=== PATIENT | male | born 1970 | race Caucasian/White ===

== ENCOUNTER 2016-11-09 07:58 | Emergency (ER) | payer BC ==
--- NOTE | 2016-11-09 09:26 | ER Document Report ---
ED General - General Chief Complaint: Back Pain Stated Complaint: ABDOMINAL PAIN TRAVEL OUTSIDE OF THE [place] IN LAST 30 DAYS: No - Related Data Allergies/Adverse Reactions: No Known Allergies Allergy (Verified 11/09/16 08:00) Past Medical History - Social History Smoking Status: Current Every Day Smoker Chew tobacco use (# tins/day): No Frequency of alcohol use: Occasional Drug Abuse: None Family History: Reviewed & Not Pertinent Patient has suicidal ideation: No Patient has homicidal ideation: No - Past Medical History Cardiac Medical History: Reports: Hx Hypertension Endocrine Medical History: Reports: Hx Diabetes Mellitus Type 2 Renal/ Medical History: Denies: Hx Peritoneal Dialysis - Immunizations Immunizations up to date: Yes Hx Diphtheria, Pertussis, Tetanus Vaccination: Yes Physical Exam - Vital signs Vitals: Temp Pulse Resp BP Pulse Ox 98.1 F 93 14 140/93 H 99 11/09/16 08:01 11/09/16 08:01 11/09/16 08:01 11/09/16 08:01 11/09/16 08:01 Course - Re-evaluation Re-evalutation: 11/09/16 09:25 presents emergency Department chief complaint low back pain following lifting a television. He describes it as paralumbar and into the abdominal region when he moves a certain direction. It's reproducible with movement touch lifting his legs forward or backwards and walking. He denies any midline tenderness numbness things weakness loss of bowel or bladder function is pulled muscles in his back in the past no bladder or urinary or fecal incontinence. Abdomen soft with tenderness guarding rebound rigidity or concerns for hernia when he lifts his leg forward he gets pain in the muscle over the anterior abdominal wall muscle. I discharged him to home on Robaxin for primary care physician in 3-4 days and discussed reasons for ED return sooner - Vital Signs Vital signs: Temp Pulse Resp BP Pulse Ox 98.1 F 93 14 140/93 H 99 11/09/16 08:01 11/09/16 08:01 11/09/16 08:01 11/09/16 08:01 11/09/16 08:01 Discharge - Discharge Clinical Impression: Low back strain Qualifiers: Encounter type: initial encounter Qualified Code(s): S39.012A - Strain of muscle, fascia and tendon of lower back, initial encounter Condition: Stable Disposition: HOME, SELF-CARE Additional Instructions: Low Back Pain Three out of every four people will have an episode of disabling back pain during their lifetime. Most commonly the pain is due to straining of the muscles and ligaments in the low back. Usual treatment includes: (1) Rest on a firm surface. Avoid lying on your stomach. (2) Ice pack the painful area. After a few days, gentle heat may be used intermittently to relax the area, or ice packs can be continued. (3) Medication may be needed -- muscle relaxers and antiinflammatory medicines are commonly used. (4) As the back improves, exercises are prescribed to strengthen the back and abdominal muscles. Your doctor will advise you on the proper care for your back at each stage in your recovery. You may be better in a few days -- or healing may take several weeks. If new symptoms of a "herniated disc" (radiation of pain, numbness, or tingling down the back of the leg or weakness in the leg) occur, you should be re-examined. Further testing may be necessary. Prescriptions: Methocarbamol [Robaxin 500 mg Tablet] 500 mg PO BID #15 tablet Referrals: YULISA WILKINS MD [Primary Care Provider] - Follow up in 3-5 days (Return to the emergency prone sooner for increasing worsening or new symptoms)
[2016-11-09 09:40] VITALS: BP 139/89
== END 2016-11-09 09:38 | disposition home or self-care (01) ==
LOC: ER 07:58
DX: S39.012A Strain of muscle, fascia and tendon of lower back, initial encounter (principal); X50.0XXA Overexertion from strenuous movement or load, initial encounter; R10.9 Unspecified abdominal pain; F17.200 Nicotine dependence, unspecified, uncomplicated; I10 Essential (primary) hypertension; E11.9 Type 2 diabetes mellitus without complications
CPT/HCPCS: 99283

== ENCOUNTER 2016-12-19 12:38 | Emergency (ER) | payer BC ==
[2016-12-19] MEDS ORDERED: LIDOCAINE 5% (700 MG) TRANSDERMAL ADH..PATCH TP ONE (14:15)
--- NOTE | 2016-12-19 14:20 | ER Document Report ---
ED General - General Chief Complaint: Back Pain Stated Complaint: BACK PAIN,LEFT FOOT NUMBNESS TRAVEL OUTSIDE OF THE [place] IN LAST 30 DAYS: No - HPI Patient complains to provider of: low back pain Notes: Patient coming in for evaluation of low back pain similar to presentation approximately 5 weeks ago. 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 Patient states he has numbness and pain in the back of his leg right foot went numb. Patient states now sensation is returned to his right foot. Patient denies any trauma. Patient denies fever chills nausea vomiting IV drug use. Patient denies any saddle anesthesias urinary incontinence bowel incontinence - Related Data Allergies/Adverse Reactions: No Known Allergies Allergy (Verified 12/19/16 12:48) Past Medical History - Social History Smoking Status: Unknown if Ever Smoked Family History: Reviewed & Not Pertinent Patient has suicidal ideation: No Patient has homicidal ideation: No - Past Medical History Cardiac Medical History: Reports: Hx Hypertension Endocrine Medical History: Reports: Hx Diabetes Mellitus Type 2 Renal/ Medical History: Denies: Hx Peritoneal Dialysis - Immunizations Immunizations up to date: Yes Hx Diphtheria, Pertussis, Tetanus Vaccination: Yes Review of Systems - Review of Systems Constitutional: No symptoms reported EENT: No symptoms reported Cardiovascular: No symptoms reported Respiratory: No symptoms reported Gastrointestinal: No symptoms reported Genitourinary: No symptoms reported Male Genitourinary: No symptoms reported Musculoskeletal: Back pain Skin: No symptoms reported Hematologic/Lymphatic: No symptoms reported Neurological/Psychological: No symptoms reported -: Yes All other systems reviewed and negative Physical Exam - Vital signs Vitals: Temp Pulse Resp BP Pulse Ox 98.9 F 114 H 18 132/90 H 99 12/19/16 12:49 12/19/16 12:49 12/19/16 12:49 12/19/16 12:49 12/19/16 12:49 Interpretation: Normal - General General appearance: Appears well, Alert - HEENT Head: Normocephalic, Atraumatic Eyes: Normal Pupils: PERRL - Respiratory Respiratory status: No respiratory distress Chest status: Nontender Breath sounds: Normal Chest palpation: Normal - Cardiovascular Rhythm: Regular Heart sounds: Normal auscultation Murmur: No - Abdominal Inspection: Normal Distension: No distension Bowel sounds: Normal Tenderness: Nontender Organomegaly: No organomegaly - Back Back: Normal, Tender - Tenderness to palpation of the right paraspinal lower L4- L5 muscles. Patient also has reproducible tenderness upon palpation of the piriformis with some reproduction of symptoms. - Extremities General upper extremity: Normal inspection, Nontender, Normal color, Normal ROM , Normal temperature General lower extremity: Normal inspection, Nontender, Normal color, Normal ROM , Normal temperature, Normal weight bearing. No: Andrade's sign - Neurological Neuro grossly intact: Yes Cognition: Normal Orientation: AAOx4 [place] Coma Scale Eye Opening: Spontaneous [place] Coma Scale Verbal: Oriented [place] Coma Scale Motor: Obeys Commands [place] Coma Scale Total: 15 Speech: Normal Motor strength normal: LUE, RUE, LLE, RLE Sensory: Normal - Psychological Associated symptoms: Normal affect, Normal mood - Skin Skin Temperature: Warm Skin Moisture: Dry Skin Color: Normal Course - Re-evaluation Re-evalutation: 12/19/16 14:20 The patient presents with low back pain without signs of spinal cord compression , cauda equina syndrome, infection, aneurysm, or other serious etiology. The patient is neurologically intact. Given the extremely low risk of these diagnoses further testing and evaluation for these possibilities does not appear to be indicated at this time. The patient has been instructed to return if the symptoms worsen or change in any way. .. - Vital Signs Vital signs: Temp Pulse Resp BP Pulse Ox 98.9 F 114 H 18 132/90 H 99 12/19/16 12:49 12/19/16 12:49 12/19/16 12:49 12/19/16 12:49 12/19/16 12:49 Discharge - Discharge Clinical Impression: Back pain Qualifiers: Back pain location: low back pain Chronicity: acute Back pain laterality: right Sciatica presence: with sciatica Sciatica laterality: sciatica of right side Qualified Code(s): M54.41 - Lumbago with sciatica, right side Condition: Good Disposition: HOME, SELF-CARE Instructions: Ice Packs ([facility]), Low Back Pain ([facility]), Oral Narcotic Medication ( [facility]), Warm Packs ([facility]), Sciatica ([facility]) Additional Instructions: Continue to take Tylenol and Motrin for your pain. These take steroids as prescribed. Return to the ER if symptoms worsen. Please follow-up with your primary care physician. We will give you a Lidoderm patch here today. There is a [id number] option please discuss this with your pharmacist. Please continue to alternate between ice packs warm packs. Please rest Prescriptions: Ibuprofen [Motrin 600 mg Tablet] 600 mg PO Q8HP PRN #90 tablet PRN Reason: Prednisone [Deltasone 20 mg Tablet] 3 tab PO DAILY 5 Days Tramadol HCl [Ultram 50 mg Tablet] 50 mg PO ASDIR PRN #30 tablet PRN Reason: Forms: Return to Work
[2016-12-19 14:34] VITALS: BP 116/96
== END 2016-12-19 14:30 | disposition home or self-care (01) ==
LOC: ER 12:38
DX: M54.41 Lumbago with sciatica, right side (principal); R20.0 Anesthesia of skin; E11.9 Type 2 diabetes mellitus without complications; I10 Essential (primary) hypertension
CPT/HCPCS: 99283

== ENCOUNTER 2017-04-21 12:23 | Emergency (ER) | payer BC ==
[2017-04-21] MEDS ORDERED: KETOROLAC TROMETHAMINE INJ/PF 30 MG/1 ML SDV IV ONE (12:48)
[2017-04-21] MEDS ORDERED: NORMAL SALINE 1000 ML 1,000 ML IV PRN (12:48)
--- NOTE | 2017-04-21 12:53 | ER Document Report ---
ED GI/ - General Chief Complaint: Abdominal Pain Stated Complaint: STOMACH/BACK PAIN Time Seen by Provider: 04/21/17 12:32 Mode of Arrival: Ambulatory Information source: Patient TRAVEL OUTSIDE OF THE [place] IN LAST 30 DAYS: No - HPI Patient complains to provider of: Abdominal pain, Diarrhea Onset: Other - November Timing/Duration: Persistent, Worse Quality of pain: Pressure, Sharp Severity at maximum: Moderate Severity in ED: Moderate Location: RUQ Associated symptoms: Diarrhea, Nausea Exacerbated by: Denies Relieved by: Denies Notes: 04/21/17 12:52 46-year-old male presents to the emergency room today complaining of right upper quadrant pain, he has been having some right-sided abdominal pain since November but over the last few days he now has pain radiating to his mid back between his shoulder blades, which worsens with deep breaths, and is associated with diarrhea, no nausea or vomiting, no fever, no dysuria or hematuria, denies any injury or trauma - Related Data Allergies/Adverse Reactions: No Known Allergies Allergy (Verified 04/21/17 12:28) Past Medical History - General Information source: Patient - Social History Smoking Status: Current Every Day Smoker Chew tobacco use (# tins/day): No Frequency of alcohol use: Occasional Drug Abuse: None Family History: Reviewed & Not Pertinent - Past Medical History Cardiac Medical History: Reports: Hx Heart Attack, Hx Hypercholesterolemia, Hx Hypertension Endocrine Medical History: Reports: Hx Diabetes Mellitus Type 2 Renal/ Medical History: Denies: Hx Peritoneal Dialysis Past Surgical History: Reports: Hx Cardiac Surgery - cardiac stent 04/29/2013 - Immunizations Immunizations up to date: Yes Hx Diphtheria, Pertussis, Tetanus Vaccination: Yes Review of Systems - Review of Systems Constitutional: No symptoms reported EENT: No symptoms reported Cardiovascular: No symptoms reported Respiratory: No symptoms reported Gastrointestinal: See HPI Genitourinary: No symptoms reported Male Genitourinary: No symptoms reported Musculoskeletal: No symptoms reported Skin: No symptoms reported Hematologic/Lymphatic: No symptoms reported Neurological/Psychological: No symptoms reported -: Yes All other systems reviewed and negative Physical Exam - Vital signs Vitals: Temp Pulse Resp BP Pulse Ox 98.7 F 90 20 165/98 H 98 04/21/17 12:28 04/21/17 12:28 04/21/17 12:28 04/21/17 12:28 04/21/17 12:28 Interpretation: Normal - General General appearance: Appears well, Alert - HEENT Head: Normocephalic, Atraumatic Eyes: Normal Pupils: PERRL - Respiratory Respiratory status: No respiratory distress Chest status: Nontender Breath sounds: Normal Chest palpation: Normal - Cardiovascular Rhythm: Regular Heart sounds: Normal auscultation Murmur: No - Abdominal Inspection: Normal Distension: No distension Bowel sounds: Normal Tenderness: Tender - right upper quadrant, epigastric Organomegaly: No organomegaly - Back Back: Normal, Nontender - Extremities General upper extremity: Normal inspection, Nontender, Normal color, Normal ROM , Normal temperature General lower extremity: Normal inspection, Nontender, Normal color, Normal ROM , Normal temperature, Normal weight bearing. No: Andrade's sign - Neurological Neuro grossly intact: Yes Cognition: Normal Orientation: AAOx4 [place] Coma Scale Eye Opening: Spontaneous [place] Coma Scale Verbal: Oriented [place] Coma Scale Motor: Obeys Commands [place] Coma Scale Total: 15 Speech: Normal Motor strength normal: LUE, RUE, LLE, RLE Sensory: Normal - Psychological Associated symptoms: Normal affect, Normal mood - Skin Skin Temperature: Warm Skin Moisture: Dry Skin Color: Normal Course - Re-evaluation Re-evalutation: 04/21/17 15:01 Patient resting comfortably on stretcher, lab and imaging findings were discussed with him at bedside which are fairly unremarkable, symptoms are consistent with musculoskeletal pain, he was also advised of his elevated blood sugar, he does have a history of diabetes but elected to stop taking his metformin on his own, has not followed up with a primary care provider for further evaluation and treatment since Dr. Nguyen and moved to [place] which was done 6 months ago, he reports that he has metformin at home and was advised to start taking this medication again, he will be prescribed a small amount of pain medication for his abdominal and back pain, and advised to follow-up accordingly, patient acknowledges understanding and agreement with this plan - Vital Signs Vital signs: Temp Pulse Resp BP Pulse Ox 98.7 F 90 20 165/98 H 98 04/21/17 12:28 04/21/17 12:28 04/21/17 12:28 04/21/17 12:28 04/21/17 12:28 - Laboratory Result Diagrams: 04/21/17 12:55 04/21/17 12:55 Laboratory results interpreted by me: 04/21/17 04/21/17 04/21/17 12:55 12:55 12:55 WBC 10.7 H Glucose 297 H Direct Bilirubin 0.5 H Alkaline Phosphatase 127 H Urine Protein 100 H Urine Glucose (UA) 150 H Urine Ascorbic Acid 40 H - Diagnostic Test Radiology reviewed: Image reviewed, Reports reviewed - EKG Interpretation by Me EKG shows normal: Sinus rhythm Rate: Normal Rhythm: NSR Discharge - Discharge Clinical Impression: Back pain Qualifiers: Back pain location: low back pain Chronicity: chronic Back pain laterality: right Sciatica presence: without sciatica Qualified Code(s): M54.5 - Low back pain; G89.29 - Other chronic pain Abdominal pain Qualifiers: Abdominal location: right upper quadrant Qualified Code(s): R10.11 - Right upper quadrant pain Hyperglycemia due to type 2 diabetes mellitus Qualifiers: Diabetes mellitus halfway insulin use: unspecified terminal manager insulin use status Qualified Code(s): E11.65 - Type 2 diabetes mellitus with hyperglycemia Condition: Stable Disposition: HOME, SELF-CARE Instructions: Abdominal Pain ([facility]), Oral Narcotic Medication ([facility]), Low Back Pain ([facility]), Chronic Back Pain ([facility]), Family Physicians / Practices Additional Instructions: Follow up with your primary care provider in one to 2 days. Return to the emergency room immediately if symptoms worsen or any additional concerns. Prescriptions: Hydrocodone/Acetaminophen [Hydrocodon-Acetaminophen 5-325] 1 each PO Q6 #14 tablet
--- NOTE | 2017-04-21 13:16 | EKG REPORT ---
SEVERITY:- BORDERLINE ECG - SINUS RHYTHM BORDERLINE PROLONGED QT INTERVAL : Confirmed by: Dann Law MD 21-Apr-2017 13:15:16
[2017-04-21 13:20] LABS: ABSOLUTE BASOPHILS # (AUTO) 0.1 10^3/uL (0.0-0.2); ABSOLUTE EOSINOPHILS # (AUTO) 0.4 10^3/uL (0.0-0.6); ABSOLUTE LYMPHOCYTES (AUTO) 3.7 10^3/uL (0.5-4.7); ABSOLUTE MONOCYTES (AUTO) 0.6 10^3/uL (0.1-1.4); ABSOLUTE NEUT (AUTO) 5.8 10^3/uL (1.7-8.2); BASOPHILS % (AUTO) 0.7 % (0-2); EOSINOPHILS % (AUTO) 3.8 % (0-6); HEMATOCRIT 46.5 % (37.9-51.0); HEMOGLOBIN 16.2 g/dL (13.5-17.0); HGB HCT DIFFERENCE 2.1; LYMPHOCYTES % (AUTO) 34.9 % (13-45); MEAN CORPUSCULAR HEMOGLOBIN 32.3 pg (27.0-33.4); MEAN CORPUSCULAR HGB CONC 34.9 g/dL (32.0-36.0); MEAN CORPUSCULAR VOLUME 93 fl (80-97); MONOCYTES % (AUTO) 5.9 % (3-13); RED BLOOD COUNT 5.02 10^6/uL (4.35-5.55); RED CELL DISTRIBUTION WIDTH 12.6 % (11.5-14.0); SEGMENTED NEUTROPHILS % (AUTO) 54.7 % (42-78); WHITE BLOOD COUNT 10.7 10^3/uL (4.0-10.5)
[2017-04-21 13:26] LABS: APPEARANCE,URINE CLEAR; BILIRUBIN,URINE NEGATIVE (NEGATIVE); GLUCOSE, URINE 150 mg/dL (NEGATIVE); KETONES,URINE NEGATIVE (NEGATIVE); LEUKOCYTE ESTERASE,URINE NEGATIVE (NEGATIVE); NITRITE,URINE NEGATIVE (NEGATIVE); PROTEIN,URINE 100 mg/dL (NEGATIVE); URINE SPECIFIC GRAVITY 1.036; UROBILINOGEN,URINE NEGATIVE mg/dL (<2.0)
[2017-04-21 13:37] LABS: ALANINE AMINOTRANSFERASE 39 U/L (21-72); ALBUMIN 4.7 g/dL (3.5-5.0); ALKALINE PHOSPHATASE 127 U/L (38-126); ANION GAP 14 (5-19); ASPARTATE AMINO TRANSFERASE 34 U/L (17-59); BILIRUBIN,DIRECT 0.5 mg/dL (0.0-0.4); BILIRUBIN,TOTAL 0.6 mg/dL (0.2-1.3); BLOOD UREA NITROGEN 9 mg/dL (7-20); CARBON DIOXIDE 26 mmol/L (22-30); CHLORIDE 102 mmol/L (98-107); CREATININE RESULT 0.61 mg/dL (0.52-1.25); GLUCOSE 297 mg/dL (75-110); LIPASE 86.7 U/L (23-300); POTASSIUM 4.2 mmol/L (3.6-5.0); SODIUM 142.2 mmol/L (137-145)
--- NOTE | 2017-04-21 14:47 | RADIOLOGY REPORT (SQ) ---
EXAM DESCRIPTION: U/S ABDOMEN LIMITED W/O DOP COMPLETED DATE/TIME: 04/21/2017 2:33 pm REASON FOR STUDY: pain COMPARISON: None. TECHNIQUE: Dynamic and static grayscale images acquired of the abdomen and recorded on PACS. Additio nal selected color Doppler and spectral images recorded. LIMITATIONS: None. FINDINGS: PANCREAS: No masses. No peripancreatic edema or fluid collections. LIVER: Echotexture is coarse with increased echogenicity consistent with fatty infiltration. Geograp hic area of focal fatty sparing in the right lobe. LIVER VASCULATURE: Normal directional flow of the main portal vein and hepatic veins. GALLBLADDER: No stones. Normal wall thickness. No pericholecystic fluid. ULTRASOUND-DETECTED KAPADIA'S SIGN: Negative. INTRAHEPATIC DUCTS AND COMMON DUCT: CBD and intrahepatic ducts normal caliber. No filling defects. INFERIOR VENA CAVA: Normal flow. AORTA: No aneurysm. RIGHT KIDNEY: Normal size. Normal echogenicity. No solid or suspicious masses. No hydronephrosis. No calcifications. PERITONEAL AND RIGHT PLEURAL SPACE: No ascites or effusions. OTHER: No other significant finding. IMPRESSION: FATTY INFILTRATION OF THE LIVER. OTHERWISE NORMAL RIGHT UPPER QUADRANT ULTRASOUND. TECHNICAL DOCUMENTATION: JOB ID: [id number] [employer]- All Rights Reserved
[2017-04-21 15:25] VITALS: BP 159/102
== END 2017-04-21 15:25 | disposition home or self-care (01) ==
LOC: ER 12:23
DX: R10.11 Right upper quadrant pain (principal); R19.7 Diarrhea, unspecified; E11.65 Type 2 diabetes mellitus with hyperglycemia; T38.3X6A Underdosing of insulin and oral hypoglycemic [antidiabetic] drugs, initial encounter; Z91.128 Patient's intentional underdosing of medication regimen for other reason; Z91.14 Patient's other noncompliance with medication regimen; G89.29 Other chronic pain; M54.5 Low back pain; M54.89 Other dorsalgia; I25.2 Old myocardial infarction; I10 Essential (primary) hypertension; F17.200 Nicotine dependence, unspecified, uncomplicated; Z95.5 Presence of coronary angioplasty implant and graft
CPT/HCPCS: 93005; 99284; 96361; 96374; 36415; 83690; 85025; 80053; 81001; 76705; 93010; J1885; J7030

== ENCOUNTER 2017-04-28 18:36 | Emergency (ER) | payer BC ==
--- NOTE | 2017-04-28 18:56 | ER Document Report ---
ED Medical Screen (RME) - General Chief Complaint: Pain All Over Stated Complaint: CHEST PAIN Time Seen by Provider: 04/28/17 18:54 Mode of Arrival: Ambulatory Information source: Patient TRAVEL OUTSIDE OF THE [place] IN LAST 30 DAYS: No - HPI Patient complains to provider of: Right upper quadrant pain, chest pain, shortness of breath Notes: 04/28/17 18:56 Patient is a 46-year-old male presenting to the emergency room today complaining of 1 week history of right upper quadrant abdominal pain that radiates into his back, today he is now having chest pain with shortness of breath as well - Related Data Allergies/Adverse Reactions: No Known Allergies Allergy (Verified 04/28/17 18:49) Past Medical History - Social History Chew tobacco use (# tins/day): No Frequency of alcohol use: Occasional Drug Abuse: Marijuana - Past Medical History Cardiac Medical History: Reports: Hx Heart Attack, Hx Hypercholesterolemia, Hx Hypertension Endocrine Medical History: Reports: Hx Diabetes Mellitus Type 2 Renal/ Medical History: Denies: Hx Peritoneal Dialysis Past Surgical History: Reports: Hx Cardiac Surgery - cardiac stent 04/29/2013 - Immunizations Immunizations up to date: Yes Hx Diphtheria, Pertussis, Tetanus Vaccination: Yes Physical Exam - Vital signs Vitals: Temp Pulse Resp BP Pulse Ox 99.2 F 95 18 174/90 H 98 04/28/17 18:47 04/28/17 18:47 04/28/17 18:47 04/28/17 18:47 04/28/17 18:47 Course - Vital Signs Vital signs: Temp Pulse Resp BP Pulse Ox 99.2 F 95 18 174/90 H 98 04/28/17 18:47 04/28/17 18:47 04/28/17 18:47 04/28/17 18:47 04/28/17 18:47
[2017-04-28 19:21] LABS: ABSOLUTE EOSINOPHILS # (AUTO) 0.5 10^3/uL (0.0-0.6); ABSOLUTE LYMPHOCYTES (AUTO) 4.7 10^3/uL (0.5-4.7); ABSOLUTE MONOCYTES (AUTO) 0.8 10^3/uL (0.1-1.4); ABSOLUTE NEUT (AUTO) 8.2 10^3/uL (1.7-8.2); BASOPHILS % (AUTO) 0.2 % (0-2); EOSINOPHILS % (AUTO) 3.5 % (0-6); HEMATOCRIT 48.5 % (37.9-51.0); HGB HCT DIFFERENCE 2.5; MEAN CORPUSCULAR HEMOGLOBIN 32.3 pg (27.0-33.4); MEAN CORPUSCULAR HGB CONC 35.1 g/dL (32.0-36.0); MEAN CORPUSCULAR VOLUME 92 fl (80-97); MONOCYTES % (AUTO) 5.6 % (3-13); RED BLOOD COUNT 5.28 10^6/uL (4.35-5.55); RED CELL DISTRIBUTION WIDTH 12.7 % (11.5-14.0); SEGMENTED NEUTROPHILS % (AUTO) 57.7 % (42-78); WHITE BLOOD COUNT 14.2 10^3/uL (4.0-10.5)
[2017-04-28 19:30] LABS: APPEARANCE,URINE SLIGHTLY-CLOUDY; BILIRUBIN,URINE NEGATIVE (NEGATIVE); GLUCOSE, URINE >=500 mg/dL (NEGATIVE); KETONES,URINE TRACE mg/dL (NEGATIVE); LEUKOCYTE ESTERASE,URINE LARGE (NEGATIVE); NITRITE,URINE NEGATIVE (NEGATIVE); PROTEIN,URINE 100 mg/dL (NEGATIVE); URINE SPECIFIC GRAVITY 1.033; UROBILINOGEN,URINE NEGATIVE mg/dL (<2.0)
[2017-04-28 19:37] LABS: ALANINE AMINOTRANSFERASE 30 U/L (21-72); ALBUMIN 4.5 g/dL (3.5-5.0); ALKALINE PHOSPHATASE 113 U/L (38-126); ANION GAP 15 (5-19); ASPARTATE AMINO TRANSFERASE 23 U/L (17-59); BILIRUBIN,DIRECT 0.4 mg/dL (0.0-0.4); BILIRUBIN,TOTAL 0.5 mg/dL (0.2-1.3); BLOOD UREA NITROGEN 11 mg/dL (7-20); CALCIUM 10.1 mg/dL (8.4-10.2); CARBON DIOXIDE 20 mmol/L (22-30); CHLORIDE 102 mmol/L (98-107); CREATINE KINASE 37 U/L (55-170); CREATININE RESULT 0.66 mg/dL (0.52-1.25); LIPASE 88.1 U/L (23-300); POTASSIUM 4.2 mmol/L (3.6-5.0); SODIUM 136.8 mmol/L (137-145); TOTAL PROTEIN 7.6 g/dL (6.3-8.2)
--- NOTE | 2017-04-28 19:38 | RADIOLOGY REPORT (SQ) ---
EXAM DESCRIPTION: CHEST PA/LAT COMPLETED DATE/TIME: 04/28/2017 7:29 pm REASON FOR STUDY: cp COMPARISON: 04/29/2013. EXAM PARAMETERS: NUMBER OF VIEWS: two views TECHNIQUE: Digital Frontal and Lateral radiographic views of the chest acquired. RADIATION DOSE: NA LIMITATIONS: none FINDINGS: LUNGS AND PLEURA: No opacities, masses or pneumothorax. No pleural effusion. MEDIASTINUM AND HILAR STRUCTURES: No masses or contour abnormalities. HEART AND VASCULAR STRUCTURES: Heart normal size. No evidence for failure. BONES: No acute findings. HARDWARE: None in the chest. OTHER: No other significant finding. IMPRESSION: NO SIGNIFICANT RADIOGRAPHIC FINDING IN THE CHEST. TECHNICAL DOCUMENTATION: JOB ID: [id number] [employer]- All Rights Reserved
[2017-04-28 19:44] LABS: GLUCOSE 429 mg/dL (75-110)
[2017-04-28 19:50] LABS: TROPONIN I < 0.012 ng/mL
[2017-04-28] MEDS ORDERED: NORMAL SALINE 1000 ML 1,000 ML IV ONE (20:01)
[2017-04-28] MEDS ORDERED: FENTANYL CITRATE INJ/PF 100 MCG/2 ML AMPUL IV ONE (20:02)
[2017-04-28] MEDS ORDERED: ONDANSETRON HCL INJ/PF 4 MG/2 ML SDV IV ONE (20:02)
--- NOTE | 2017-04-28 20:02 | ER Document Report ---
ED General - General Mode of Arrival: Ambulatory Information source: Patient TRAVEL OUTSIDE OF THE [place] IN LAST 30 DAYS: No - HPI Onset: Other - see narrative Associated symptoms: None Similar symptoms previously: Yes Recently seen / treated by doctor: Yes <ARTIS GRIGGS - Last Filed: 04/28/17 22:45> <JUAN JOSÉ MIKE - Last Filed: 04/28/17 23:28> - General Chief Complaint: Pain All Over Stated Complaint: CHEST PAIN Time Seen by Provider: 04/28/17 18:54 Notes: Patient is a 46-year-old male who presents to the emergency department today with complaints of musculoskeletal pain. Patient complains of right upper quadrant abdominal musculature pain and back pain. Patient was seen here 1 week ago and had a full workup including gallbladder ultrasound which were unremarkable. Patient states that his pain is exacerbated with movement, breathing, coughing, and sneezing. Patient states it feels like a "pulled muscle". Patient has no associated symptoms with this pain. (ARTIS GRIGGS) - Related Data Allergies/Adverse Reactions: No Known Allergies Allergy (Verified 04/28/17 18:49) Past Medical History - General Information source: Patient - Social History Smoking Status: Current Every Day Smoker Cigarette use (# per day): Yes Chew tobacco use (# tins/day): No Frequency of alcohol use: Occasional Drug Abuse: Marijuana Lives with: Family Family History: Reviewed & Not Pertinent - Past Medical History Cardiac Medical History: Reports: Hx Heart Attack, Hx Hypercholesterolemia, Hx Hypertension Endocrine Medical History: Reports: Hx Diabetes Mellitus Type 2 Past Surgical History: Reports: Hx Cardiac Surgery - cardiac stent 04/29/2013 - Immunizations Immunizations up to date: Yes Hx Diphtheria, Pertussis, Tetanus Vaccination: Yes <ARTIS GRIGGS - Last Filed: 04/28/17 22:45> Review of Systems - Review of Systems Constitutional: No symptoms reported EENT: No symptoms reported Cardiovascular: No symptoms reported Respiratory: No symptoms reported Gastrointestinal: See HPI, Abdominal pain - muscle strain Genitourinary: No symptoms reported Male Genitourinary: No symptoms reported Musculoskeletal: See HPI, Back pain Skin: No symptoms reported Hematologic/Lymphatic: No symptoms reported Neurological/Psychological: No symptoms reported -: Yes All other systems reviewed and negative <ARTIS GRIGGS - Last Filed: 04/28/17 22:45> Physical Exam <ARTIS GRIGGS - Last Filed: 04/28/17 22:45> <JUAN JOSÉ MIKE - Last Filed: 04/28/17 23:28> - Vital signs Vitals: Temp Pulse Resp BP Pulse Ox 99.2 F 95 18 174/90 H 98 04/28/17 18:47 04/28/17 18:47 04/28/17 18:47 04/28/17 18:47 04/28/17 18:47 - Notes Notes: Physical Exam: General: Alert, appears well. HEENT: Normocephalic. Atraumatic. PERRL. Extraocular movements intact. Oropharynx clear. Neck: Supple. Non-tender. Respiratory: Right lateral anterior chest wall tenderness with palpation. No respiratory distress. Clear and equal breath sounds bilaterally. Cardiovascular: Regular rate and rhythm. Abdominal: No abdominal tenderness with palpation. No distension. Normal Bowel Sounds. Back: Tenderness with palpation over bilateral medial scapula, right greater than left. No deformity or step off. Extremities: Moves all four extremities. Upper extremities: Normal inspection. Normal ROM. Lower extremities: Normal inspection. No edema. Normal ROM. Neurological: Normal cognition. AAOx4. Normal speech. Psychological: Normal affect. Normal Mood. Skin: Warm. Dry. Normal color. (ARTIS GRIGGS) Course - Laboratory Result Diagrams: 04/28/17 19:05 04/28/17 19:05 <ARTIS GRIGGS - Last Filed: 04/28/17 22:45> - Laboratory Result Diagrams: 04/28/17 19:05 04/28/17 19:05 - Diagnostic Test Radiology reviewed: Reports reviewed <JUAN JOSÉ MIKE - Last Filed: 04/28/17 23:28> - Re-evaluation Re-evalutation: 04/28/17 22:44 Patient with no acute findings on imaging or blood work except for elevated blood sugar. Patient states he ate pizza prior to arrival and has not been taking his Metformin. Patient is encouraged to start taking his metformin. Patient's strength and sensation are intact. It is recommended the patient follow-up with her primary care doctor and discuss getting an outpatient MRI. In the meantime he will be treated for what is likely musculoskeletal back pain. Return if any worsening or concerning symptoms. Neurovascularly intact at the time of discharge. (JUAN JOSÉ MIKE) - Vital Signs Vital signs: Temp Pulse Resp BP Pulse Ox 97.3 F 78 18 145/78 H 98 04/28/17 23:13 04/28/17 23:13 04/28/17 23:13 04/28/17 23:13 04/28/17 23:13 - Laboratory Laboratory results interpreted by me: 04/28/17 04/28/17 04/28/17 19:05 19:05 19:05 WBC 14.2 H Sodium 136.8 L Carbon Dioxide 20 L Glucose 429 H* POC Glucose Creatine Kinase 37 L Urine Protein 100 H Urine Glucose (UA) >=500 H Urine Ketones TRACE H Ur Leukocyte Esterase LARGE H Urine Ascorbic Acid 40 H 04/28/17 21:58 WBC Sodium Carbon Dioxide Glucose POC Glucose 305 H Creatine Kinase Urine Protein Urine Glucose (UA) Urine Ketones Ur Leukocyte Esterase Urine Ascorbic Acid Discharge <ARTIS GRIGGS - Last Filed: 04/28/17 22:45> <JUAN JOSÉ MIKE - Last Filed: 04/28/17 23:28> - Discharge Clinical Impression: Back pain Qualifiers: Back pain location: thoracic back pain Chronicity: acute Back pain laterality: bilateral Qualified Code(s): M54.6 - Pain in thoracic spine Condition: Stable Disposition: HOME, SELF-CARE Instructions: Upper Back Strain ([facility]) Additional Instructions: Please talk to your primary care doctor about doing an MRI to evaluate for disc herniation. I am not finding any dangerous cause of your pain today. Please make sure you are taking metformin as prescribed. Please discuss gabapentin or Lyrica. Prescriptions: Oxycodone HCl/Acetaminophen [Percocet 5-325 mg Tablet] 1 tab PO Q6HP PRN #20 tablet PRN Reason: Gabapentin 300 mg PO TID #90 capsule Lidocaine [Lidoderm 5% (700 mg) Transdermal Patch] 1 patch TP DAILY #30 adh..patch Referrals: BUBBA LIN MD [ACTIVE STAFF] - Follow up as needed Scribe Attestation: 04/28/17 22:43 I personally performed the services described in the documentation, reviewed and edited the documentation which was dictated to the scribe in my presence, and it accurately records my words and actions. (JUAN JOSÉ MIKE) Scribe Documentation - Scribe Written by Scribe:: Fransico Adams, 04/28/2017 2019 acting as scribe for :: [place]ka <ARTIS GRIGGS - Last Filed: 04/28/17 22:45>
--- NOTE | 2017-04-28 21:23 | RADIOLOGY REPORT (SQ) ---
EXAM DESCRIPTION: U/S ABDOMEN COMPLETE W/O DOP COMPLETED DATE/TIME: 04/28/2017 9:15 pm REASON FOR STUDY: evaluate for RUQ pain COMPARISON: 04/21/2017. TECHNIQUE: Dynamic and static grayscale images acquired of the abdomen and recorded on PACS. Isaaco simin selected color Doppler and spectral images recorded. LIMITATIONS: None. FINDINGS: PANCREAS: No masses. Visualized pancreatic duct normal caliber. LIVER: Echotexture is coarse with increased echogenicity consistent with fatty infiltration. LIVER VASCULATURE: Normal directional flow of the main portal vein and hepatic veins. GALLBLADDER: No stones. Normal wall thickness. No pericholecystic fluid. ULTRASOUND-DETECTED KAPADIA'S SIGN: Negative. INTRAHEPATIC DUCTS AND COMMON DUCT: CBD and intrahepatic ducts normal caliber. No filling defects. INFERIOR VENA CAVA: Normal flow. AORTA: No aneurysm. RIGHT KIDNEY: Normal size. Normal echogenicity. No solid or suspicious masses. No hydronephrosis. No calcifications. LEFT KIDNEY: Normal size. Normal echogenicity. No solid or suspicious masses. No hydronephrosis. No calcifications. SPLEEN:Normal size. No solid masses. PERITONEAL AND PLEURAL SPACES: No ascites or effusions. OTHER: No other significant finding. IMPRESSION: FATTY LIVER. NO OTHER SIGNIFICANT FINDING. TECHNICAL DOCUMENTATION: JOB ID: [id number] [employer]- All Rights Reserved
--- NOTE | 2017-04-28 21:25 | RADIOLOGY REPORT (SQ) ---
EXAM DESCRIPTION: CT LTD RENAL STONE PROTOCOL ON COMPLETED DATE/TIME: 04/28/2017 9:12 pm REASON FOR STUDY: abd back pain COMPARISON: None. TECHNIQUE: CT scan of the abdomen and pelvis performed without intravenous or oral contrast. Images reviewed with lung, soft tissue, and bone windows. Reconstructed coronal and sagittal MPR images revi ewed. All images stored on PACS. All CT scanners at this facility use dose modulation, iterative reconstruction, and/or weight based d osing when appropriate to reduce radiation dose to as low as reasonably achievable (ALARA). [facility]: Dose Right [facility]: CareDose [facility]: Dose Right [facility]: Teradose 4D [facility]: Smart Whatser RADIATION DOSE: Up-to-date CT equipment and radiation dose reduction techniques were employed. CTDIv ol: 7.2 mGy. DLP: 403 mGy-cm.mGy. LIMITATIONS: None. FINDINGS: LOWER CHEST: No significant findings. No nodules or infiltrates. NON-CONTRASTED LIVER, SPLEEN, ADRENALS: Evaluation limited by lack of IV contrast. Diffuse fatty inf iltration of the liver. No identified significant masses. PANCREAS: No masses. No peripancreatic inflammatory changes. GALLBLADDER: No identified stones by CT criteria. No inflammatory changes to suggest cholecystitis. RIGHT KIDNEY AND URETER: No suspicious masses. Assessment limited by lack of IV contrast. No signif icant calcifications. No hydronephrosis or hydroureter. LEFT KIDNEY AND URETER: No suspicious masses. Assessment limited by lack of IV contrast. No signifi cant calcifications. No hydronephrosis or hydroureter. AORTA AND RETROPERITONEUM: No aneurysm. No retroperitoneal masses or adenopathy. BOWEL AND PERITONEAL CAVITY: No obvious masses or inflammatory changes. No free fluid. APPENDIX: Normal. PELVIS, BLADDER, AND ABDOMINAL WALL:No abnormal masses. No free fluid. Bladder normal. BONES: No significant findings. OTHER: No other significant finding. IMPRESSION: DIFFUSE FATTY INFILTRATION OF THE LIVER. NO OTHER SIGNIFICANT OR ACUTE PROCESS IN THE A BDOMEN OR PELVIS. COMMENT: Quality ID # [id number]: Final reports with documentation of one or more dose reduction techniques (e.g., Automated exposure control, adjustment of the mA and/or kV according to patient size, use of iterative reconstruction technique) TECHNICAL DOCUMENTATION: JOB ID: [id number]- All Rights Reserved
[2017-04-28] MEDS ORDERED: LIDOCAINE 5% (700 MG) TRANSDERMAL ADH..PATCH TP ONE (22:12)
[2017-04-28 23:19] VITALS: BP 145/78
--- NOTE | 2017-04-29 11:43 | EKG REPORT ---
SEVERITY:- BORDERLINE ECG - SINUS TACHYCARDIA BORDERLINE LEFT AXIS DEVIATION BORDERLINE T WAVE ABNORMALITIES : Confirmed by: Neha Cuba 29-Apr-2017 11:42:15
== END 2017-04-28 23:19 | disposition home or self-care (01) ==
LOC: ER 18:36
DX: M54.6 Pain in thoracic spine (principal); R07.9 Chest pain, unspecified; M79.1 Myalgia; F17.210 Nicotine dependence, cigarettes, uncomplicated
CPT/HCPCS: 93005; 99285; 96361; 96374; 96375; 36415; 82553; 82962; 82550; 83690; 85025; 80053; 81001; 84484; 83880; 71020; 76700; 76380; 93010; J3010; J2405; J7030

== ENCOUNTER → 2017-06-07 | Outpatient (CLI) | payer BC ==
--- NOTE | 2017-06-07 11:49 | RADIOLOGY REPORT (SQ) ---
EXAM DESCRIPTION: MRI LUMBAR SPINE WITHOUT COMPLETED DATE/TIME: 06/07/2017 8:14 am REASON FOR STUDY: LBP (M54.5) M54.5 LOW BACK PAIN COMPARISON: None. TECHNIQUE: Sagittal and Axial imaging includes T1, T2, STIR and gradient echo sequences. Coronal T2/ HASTE imaging. LIMITATIONS: Motion. FINDINGS: VISUALIZED UPPER ABDOMEN: Limited evaluation. No acute or suspicious findings suggested. SEGMENTATION: No transitional anatomy. The lowest well-developed disc space is labeled L5-S1. ALIGNMENT: Anatomic. VERTEBRAE: Intact. BONE MARROW: Normal. No marrow replacement or reactive changes. DISC SIGNAL: Desiccation multiple levels. POSTERIOR ELEMENTS: Intact. HARDWARE: None in the spine. CORD AND CONUS: Normal in size and signal intensity. Conus at the appropriate level. SOFT TISSUES: No aortic aneurysm seen. No bulky retroperitoneal adenopathy or mass. No paraspinal mas s or fluid. L1-L2: Schmorl's node formation superior endplate. Ventral impression on the thecal sac due to disc bulge. Mild neural foraminal narrowing. L2-L3: Schmorl's node formation superior endplate. Ventral impression on the thecal sac due to disc bulge. L3-L4: No significant spinal stenosis or exit foraminal stenosis. L4-L5: Facet arthropathy. No significant spinal stenosis or exit foraminal stenosis. L5-S1: Ventral impression on the thecal sac due to small central disc protrusion. Facet arthropathy. Moderate neural foraminal narrowing bilaterally. LOWER THORACIC: Incompletely imaged. No stenosis seen. SACRUM: Visualized upper sacrum intact. OTHER: No other significant findings. IMPRESSION: Spondylosis and facet arthropathy. Mild spinal stenosis L1-2 and L2- 3. TECHNICAL DOCUMENTATION: JOB ID: [id number]- All Rights Reserved
== END ==
LOC: RAD 07:28
PROVIDERS: ATTEND Physician Assistant
DX: M54.5 Low back pain (principal); M47.896 Other spondylosis, lumbar region
CPT/HCPCS: 72148

== ENCOUNTER 2017-12-30 20:28 | Emergency (ER) | payer BC ==
[2017-12-30] MEDS ORDERED: HYDROCODONE/ACETAMINOPHEN 5-325 MG TABLET PO ONE (21:01)
[2017-12-30] MEDS ORDERED: LIDOCAINE 1% INJ (10 MG/ML) 10 ML MDV INJ ONE (21:02)
[2017-12-30] MEDS ORDERED: CYCLOBENZAPRINE HCL 10 MG TABLET PO ONE (21:02)
[2017-12-30] MEDS ORDERED: IBUPROFEN 800 MG TABLET PO ONE (21:02)
[2017-12-30] MEDS ORDERED: PENICILLIN V POTASSIUM 500 MG TABLET PO ONE (21:03)
[2017-12-30] MEDS ORDERED: LIDOCAINE 1% INJ-PF (10 MG/ML) 30 ML SDV ONE (21:37)
[2017-12-30] MEDS ORDERED: HYDROCODONE/ACETAMINOPHEN 5-325 MG (6 TAB/ER DISP) PO PRN (22:51)
--- NOTE | 2017-12-30 22:57 | ER Document Report ---
ED General - General Chief Complaint: Mouth Problem Stated Complaint: MOUTH/BACK PAIN Time Seen by Provider: 12/30/17 20:48 TRAVEL OUTSIDE OF THE [place] IN LAST 30 DAYS: No - HPI Notes: Patient is a 47-year-old male presents emergency department with complaint of chronic lower back pain with some recent worsening. The patient states pain seems to be on the right lower back region. He is been seen for this before and had a MRI in May 2017 which did not show any significant impingement and only showed mild spinal stenosis and arthritis changes. Patient denies any incontinence, numbness, paresthesia. No recent fall or acute trauma. Patient also reports left lower toothache pain with chronic dental caries, but he has some facial swelling to the left lower jawline. The patient denies any fever or chills. The patient reports no neck stiffness or chest pain or difficulty breathing or difficulty swallowing. Patient does have a history of diabetes, but denies any nausea or vomiting. - Related Data Allergies/Adverse Reactions: No Known Allergies Allergy (Verified 12/30/17 20:28) Past Medical History - General Information source: Patient - Social History Smoking Status: Current Every Day Smoker Chew tobacco use (# tins/day): No Frequency of alcohol use: Occasional Drug Abuse: Marijuana Lives with: Friend Family History: Reviewed & Not Pertinent Patient has suicidal ideation: No Patient has homicidal ideation: No - Past Medical History Cardiac Medical History: Reports: Hx Heart Attack, Hx Hypercholesterolemia, Hx Hypertension Endocrine Medical History: Reports: Hx Diabetes Mellitus Type 2 Renal/ Medical History: Denies: Hx Peritoneal Dialysis Past Surgical History: Reports: Hx Cardiac Surgery - cardiac stent 04/29/2013 - Immunizations Immunizations up to date: Yes Hx Diphtheria, Pertussis, Tetanus Vaccination: Yes Review of Systems - Review of Systems Notes: REVIEW OF SYSTEMS: CONSTITUTIONAL : Denies fever, chills, or sweats. EENT: Denies eye, ear, throat pain or symptoms. Denies nasal or sinus congestion or discharge. Denies throat, tongue swelling or difficulty swallowing. CARDIOVASCULAR: Denies chest pain. Denies palpitations or racing or irregular heart beat. Denies ankle edema. RESPIRATORY: Denies cough, cold, or chest congestion. Denies shortness of breath, difficulty breathing, or wheezing. GASTROINTESTINAL: Denies abdominal pain or distention. Denies nausea, vomiting , or diarrhea. Denies blood in vomitus, stools, or per rectum. Denies black, tarry stools. Denies constipation. GENITOURINARY: Denies difficulty urinating, painful urination, burning, frequency, blood in urine, or discharge. MUSCULOSKELETAL: Denies neck pain or stiffness. Denies joint pain or swelling. SKIN: Denies rash, lesions or sores. HEMATOLOGIC : Denies easy bruising or bleeding. LYMPHATIC: Denies swollen, enlarged glands. NEUROLOGICAL: Denies confusion or altered mental status. Denies passing out or loss of consciousness. Denies dizziness or lightheadedness. Denies headache. Denies weakness or paralysis or loss of use of either side. Denies problems with gait or speech. Denies sensory loss, numbness, or tingling. Denies seizures. PSYCHIATRIC: Denies anxiety or stress. Denies depression, suicidal ideation, or homicidal ideation. ALL OTHER SYSTEMS REVIEWED AND NEGATIVE. Dictation was performed using [employer] voice recognition software Physical Exam - Vital signs Vitals: Temp Pulse Resp BP Pulse Ox 99.2 F 94 15 148/85 H 98 12/30/17 20:32 12/30/17 20:32 12/30/17 20:32 12/30/17 20:32 12/30/17 20:32 - Notes Notes: PHYSICAL EXAMINATION: GENERAL: Well-appearing, well-nourished and in no acute distress. HEAD: Atraumatic, normocephalic. EYES: Pupils equal round and reactive to light, extraocular movements intact, sclera anicteric, conjunctiva are normal. ENT: Nares patent. Moist mucous membranes. Dental caries noted. Patient has swelling lateral to tooth #18 with evidence for periapical abscess. There is mild facial swelling but no obvious facial abscess. NECK: Normal range of motion, supple with scant left submandibular and anterior cervical adenopathy LUNGS: Breath sounds clear to auscultation bilaterally and equal. No wheezes rales or rhonchi. HEART: Regular rate and rhythm without murmurs ABDOMEN: Soft, nontender, nondistended abdomen. No guarding, no rebound. No masses appreciated. Musculoskeletal: Normal range of motion, no pitting or edema. No cyanosis. Patient has pain over the lower lumbar spine paraspinal region right greater than left long L4-5. No bony deformity or crepitance. No CVA tenderness. NEUROLOGICAL: Cranial nerves grossly intact. Normal speech, normal gait. Normal sensory, motor exams. No saddle anesthesia. Normal reflexes. PSYCH: Normal mood, normal affect. SKIN: Warm, Dry, normal turgor, no rashes or lesions noted. Course - Re-evaluation Re-evalutation: 12/30/17 22:59 Patient was given medication for pain and was given penicillin. Following discussion of risks, alternatives, and benefits, the patient had oral rinse with saline and diluted hydrogen peroxide. Following this, the patient had lidocaine 1% 1 cc instilled in the #18 lateral periapical region and then # 11 scalpel was used with one single scalpel incision to obtain a minimal amount of purulent material with some improvement in the patient's pain and swelling. Patient tolerated the procedure well. Bleeding was minimal. Complications none. 12/30/17 22:59 Blood sugar was 151 no evidence for diabetic complications. - Vital Signs Vital signs: Temp Pulse Resp BP Pulse Ox 99.2 F 94 15 148/85 H 98 12/30/17 20:32 12/30/17 20:32 12/30/17 20:32 12/30/17 20:32 12/30/17 20:32 - Laboratory Laboratory results interpreted by me: 12/30/17 21:25 POC Glucose 151 H Discharge - Discharge Clinical Impression: Periapical abscess, Dental caries Back strain Qualifiers: Encounter type: initial encounter Qualified Code(s): S39.012A - Strain of muscle, fascia and tendon of lower back, initial encounter Disposition: HOME, SELF-CARE Instructions: Abscess ([facility]), Post Incision and Drainage, Stretching Exercises for the Back ([facility]) Prescriptions: Hydrocodone/Acetaminophen [[place] 5-325 Tablet] 1 - 2 tab PO Q6HP PRN #20 tab PRN Reason: Cyclobenzaprine HCl [Flexeril 10 mg Tablet] 10 mg PO TIDP PRN #20 tab PRN Reason: Ibuprofen [Motrin 800 mg Tablet] 800 mg PO Q8H PRN #30 tab PRN Reason: Penicillin V Potassium [Penicillin Vk 500 mg Tablet] 500 mg PO TID #30 tablet
[2017-12-30 23:14] VITALS: BP 127/86
== END 2017-12-30 23:16 | disposition home or self-care (01) ==
LOC: ER 20:28
DX: K04.7 Periapical abscess without sinus (principal); K02.9 Dental caries, unspecified; S39.012A Strain of muscle, fascia and tendon of lower back, initial encounter; X58.XXXA Exposure to other specified factors, initial encounter; M48.00 Spinal stenosis, site unspecified; K08.89 Other specified disorders of teeth and supporting structures; E11.9 Type 2 diabetes mellitus without complications; F17.200 Nicotine dependence, unspecified, uncomplicated; I10 Essential (primary) hypertension; F12.10 Cannabis abuse, uncomplicated
CPT/HCPCS: 99283; 82962; 40800; J3490

== ENCOUNTER 2019-01-30 10:55 | Inpatient (IN) | payer OTHER, BC ==
[2019-01-30] MEDS ORDERED: NORMAL SALINE 1000 ML 2,000 ML IV ONE (11:15)
[2019-01-30] MEDS ORDERED: ONDANSETRON HCL INJ/PF 4 MG/2 ML SDV IV ONE (11:16)
--- NOTE | 2019-01-30 11:21 | ER Document Report ---
ED Medical Screen (RME) - General Chief Complaint: Vomiting/Diarrhea Stated Complaint: VOMITING Time Seen by Provider: 01/30/19 11:12 Mode of Arrival: Ambulatory Information source: Patient Notes: Mr. Schneider is a 48-year-old male presenting to the emergency department from the [facility] for possible dehydration. He arrives hypotensive with a blood pressure in the 80s, he is tachycardic with a heart rate ranging 105-115. He reports he has been having vomiting that started last night. He also reports he has been having intermittent episodes of chills and diaphoresis. He denies any chest pain or shortness of breath. He does report that he has been feeling dizziness and faint lately although he has had no syncopal episodes. He does have a history of an LA with one stent placement. He states this was about 6 years ago. Charge nurse was made aware of need for bed placement at 11:18 a.m. Exam: Skin pale. Lung sounds clear and equal bilaterally. Mild diaphoresis noted. I have greeted and performed a rapid initial assessment of this patient. A comprehensive ED assessment and evaluation of the patient, analysis of test results and completion of the medical decision making process will be conducted by additional ED providers. Dictation of this chart was performed using voice recognition software; therefore, there may be some unintended grammatical errors. TRAVEL OUTSIDE OF THE [place] IN LAST 30 DAYS: No - Related Data Allergies/Adverse Reactions: No Known Allergies Allergy (Verified 01/30/19 10:58) Past Medical History - Past Medical History Cardiac Medical History: Reports: Hx Heart Attack, Hx Hypercholesterolemia, Hx Hypertension Endocrine Medical History: Reports: Hx Diabetes Mellitus Type 2 Renal/ Medical History: Denies: Hx Peritoneal Dialysis Past Surgical History: Reports: Hx Cardiac Surgery - cardiac stent 04/29/2013 - Immunizations Immunizations up to date: Yes Hx Diphtheria, Pertussis, Tetanus Vaccination: Yes Physical Exam - Vital signs Vitals: Temp Pulse Resp BP Pulse Ox 98.2 F 105 H 16 84/50 L 97 01/30/19 11:10 01/30/19 11:10 01/30/19 11:10 01/30/19 11:10 01/30/19 11:10 Course - Vital Signs Vital signs: Temp Pulse Resp BP Pulse Ox 98.2 F 105 H 16 84/50 L 97 01/30/19 11:10 01/30/19 11:10 01/30/19 11:10 01/30/19 11:10 01/30/19 11:10
--- NOTE | 2019-01-30 11:42 | RADIOLOGY REPORT (SQ) ---
EXAM DESCRIPTION: CHEST SINGLE VIEW COMPLETED DATE/TIME: 01/30/2019 11:28 am REASON FOR STUDY: hypotension, dizziness COMPARISON: 04/28/2017 EXAM PARAMETERS: NUMBER OF VIEWS: One view. TECHNIQUE: Single frontal radiographic view of the chest acquired. RADIATION DOSE: NA LIMITATIONS: None. FINDINGS: LUNGS AND PLEURA: No opacities, masses or pneumothorax. No pleural effusion. MEDIASTINUM AND HILAR STRUCTURES: No masses. Contour normal. HEART AND VASCULAR STRUCTURES: Heart normal in size. Normal vasculature. BONES: No acute findings. HARDWARE: None in the chest. OTHER: No other significant finding. IMPRESSION: No acute abnormality of the lungs in frontal projection. TECHNICAL DOCUMENTATION: JOB ID: [id number] [employer]- All Rights Reserved Reading location - IP/workstation name: [email or web address]
[2019-01-30 12:03] LABS: ABSOLUTE BASOPHILS # (AUTO) 0.1 10^3/uL (0.0-0.2); ABSOLUTE LYMPHOCYTES (AUTO) 2.8 10^3/uL (0.5-4.7); ABSOLUTE MONOCYTES (AUTO) 1.7 10^3/uL (0.1-1.4); ABSOLUTE NEUT (AUTO) 13.9 10^3/uL (1.7-8.2); BASOPHILS % (AUTO) 0.4 % (0-2); HEMATOCRIT 34.2 % (37.9-51.0); HEMOGLOBIN 11.7 g/dL (13.5-17.0); MEAN CORPUSCULAR HEMOGLOBIN 30.9 pg (27.0-33.4); MEAN CORPUSCULAR HGB CONC 34.2 g/dL (32.0-36.0); MEAN CORPUSCULAR VOLUME 90 fl (80-97); MONOCYTES % (AUTO) 9.1 % (3-13); PLATELET COUNT 244 10^3/uL (150-450); RED BLOOD COUNT 3.79 10^6/uL (4.35-5.55); RED CELL DISTRIBUTION WIDTH 12.7 % (11.5-14.0); SEGMENTED NEUTROPHILS % (AUTO) 75.5 % (42-78); TOTAL CELLS COUNTED % (AUTO) 100 %; WHITE BLOOD COUNT 18.5 10^3/uL (4.0-10.5)
[2019-01-30 12:11] LABS: INTERNATIONAL RATION (INR) 1.06; PROTHROMBIN TIME 14.3 SEC (11.4-15.4)
[2019-01-30 12:19] LABS: VENOUS BLOOD BASE EXCESS -3.9 mmol/L; VENOUS BLOOD HCO3 20.4 mmol/L (20-32); VENOUS BLOOD PCO2 35.3 mmHg (35-63); VENOUS BLOOD PH 7.38 (7.30-7.42)
[2019-01-30 12:36] LABS: ALANINE AMINOTRANSFERASE 135 U/L (21-72); ALBUMIN 3.9 g/dL (3.5-5.0); ALKALINE PHOSPHATASE 119 U/L (38-126); ANION GAP 14 (5-19); ASPARTATE AMINO TRANSFERASE 104 U/L (17-59); BILIRUBIN,DIRECT 0.4 mg/dL (0.0-0.4); BILIRUBIN,TOTAL 0.5 mg/dL (0.2-1.3); BLOOD UREA NITROGEN 52 mg/dL (7-20); CALCIUM 9.6 mg/dL (8.4-10.2); CARBON DIOXIDE 19 mmol/L (22-30); CHLORIDE 99 mmol/L (98-107); GLUCOSE 360 mg/dL (75-110); SODIUM 132.3 mmol/L (137-145); TOTAL PROTEIN 7.1 g/dL (6.3-8.2)
[2019-01-30 13:20] LABS: FREE T3 2.59 pg/mL (2.77-5.27); FREE T4 (FREE THYROXINE) 1.47 ng/dL (0.78-2.19)
[2019-01-30 13:33] LABS: THYROID STIMULATING HORMONE 3.15 uIU/mL (0.47-4.68)
[2019-01-30 14:42] LABS: APPEARANCE,URINE CLOUDY; BILIRUBIN,URINE NEGATIVE (NEGATIVE); COLOR,URINE AMBER; GLUCOSE, URINE NEGATIVE (NEGATIVE); KETONES,URINE NEGATIVE (NEGATIVE); LEUKOCYTE ESTERASE,URINE LARGE (NEGATIVE); NITRITE,URINE NEGATIVE (NEGATIVE); PROTEIN,URINE 100 mg/dL (NEGATIVE); URINE SPECIFIC GRAVITY 1.015; UROBILINOGEN,URINE NEGATIVE mg/dL (<2.0)
[2019-01-30] MEDS ORDERED: CEFTRIAXONE 1 GM/D5W RTU 1 GM/50 ML RTUPB IV ONE (14:43)
[2019-01-30] MEDS ORDERED: NORMAL SALINE 1000 ML 1,000 ML IV ONE (15:48)
--- NOTE | 2019-01-30 15:49 | ER Document Report ---
Entered by ARTIS GRIGGS SCRIBE 01/30/19 1213 Acting as scribe for:DURAN PAREKH DO ED General - General Chief Complaint: Vomiting/Diarrhea Stated Complaint: VOMITING Time Seen by Provider: 01/30/19 11:12 Primary Care Provider: YAKELIN,ROBERTO [Primary Care Provider] - Follow up as needed Mode of Arrival: Ambulatory Information source: Patient Notes: 48-year-old male who presents to the emergency department today with complaints of feeling lightheaded and dizzy for the last week. Patient states that he noticed these symptoms at around the same time that his synthroid was increased from 75mg to 100mg. Patient also started flexeril at this same time. Patient complains of chills, vomiting, and diarrhea as well. Patient denies any nasal congestion, earache, history of IBS/Chrons, history of cholecystectomy, chest pain, shortness of breath, headache, or throat pain. TRAVEL OUTSIDE OF THE [place] IN LAST 30 DAYS: No - Related Data Allergies/Adverse Reactions: No Known Allergies Allergy (Verified 01/30/19 10:58) Past Medical History - General Information source: Patient - Social History Smoking Status: Current Every Day Smoker Cigarette use (# per day): Yes Frequency of alcohol use: Rare Drug Abuse: Marijuana Lives with: Family Family History: Reviewed & Not Pertinent Patient has suicidal ideation: No Patient has homicidal ideation: No - Past Medical History Cardiac Medical History: Reports: Hx Heart Attack, Hx Hypercholesterolemia, Hx Hypertension Endocrine Medical History: Reports: Hx Diabetes Mellitus Type 2 Past Surgical History: Reports: Hx Cardiac Surgery - cardiac stent 04/29/2013 - Immunizations Immunizations up to date: Yes Hx Diphtheria, Pertussis, Tetanus Vaccination: Yes Review of Systems - Review of Systems Constitutional: See HPI, Chills EENT: denies: Ear pain, Nose congestion, Throat pain Cardiovascular: See HPI, Dizziness, Lightheaded. denies: Chest pain Respiratory: denies: Short of breath Gastrointestinal: See HPI, Diarrhea, Vomiting Genitourinary: No symptoms reported Male Genitourinary: No symptoms reported Musculoskeletal: No symptoms reported Skin: No symptoms reported Hematologic/Lymphatic: No symptoms reported Neurological/Psychological: See HPI, Numbness - left toe numbness. denies: Headaches -: Yes All other systems reviewed and negative Physical Exam - Vital signs Vitals: Temp Pulse Resp BP Pulse Ox 98.2 F 105 H 16 84/50 L 97 01/30/19 11:10 01/30/19 11:10 01/30/19 11:10 01/30/19 11:10 01/30/19 11:10 - Notes Notes: PHYSICAL EXAM GENERAL: Alert, interacts well. No acute distress. HEAD: Normocephalic, atraumatic. EYES: Pupils equal, round, and reactive to light. Extraocular movements intact. ENT: Oral mucosa moist, tongue midline. = NECK: Full range of motion. Supple. Trachea midline. LUNGS: Clear to auscultation bilaterally, no wheezes, rales, or rhonchi. No respiratory distress. HEART: Regular rate and rhythm. No murmurs, gallops, or rubs. ABDOMEN: Soft, non-tender. Non-distended. Bowel sounds present in all 4 quadrants. No guarding, rigidity, or rebound. EXTREMITIES: Moves all 4 extremities spontaneously. No edema, radial and dorsalis pedis pulses 2/4 bilaterally. No cyanosis. NEUROLOGICAL: Alert and oriented x3. Normal speech. PSYCH: Normal affect, normal mood. SKIN: Warm, diaphoretic, normal turgor. Cardinal tail is wet from diaphoresis. No rashes or lesions noted. Course - Re-evaluation Re-evalutation: 01/30/19 15:44 CBC shows leukocytosis with anemia of 11.7, white blood cell count is 18.5, CMP shows hyponatremia with sodium 132.3, CO2 is low at 19, BUN and creatinine show acute renal failure with a BUN of 52 and a creatinine of 2.46, glucose is elevated at 390, lactic acid is normal at 2.1, AST and ALT are both elevated but alk phos is normal, total and direct bilirubin are normal, troponin is negative, T3 is low but TSH and free T4 are normal, urinalysis shows large leukocyte esterase, greater than 182 WBCs, only 7 RBCs, 3+ bacteria. Suspect pyelonephritis at this time. Chest x-ray shows no acute process. Patient is treated with fluids and Rocephin, blood pressure has improved. Patient's appe arance has improved well. Discussed patient with Dr. Gonsalez who agrees to accept the patient to his service. Intermittently meet sepsis criteria based off of white blood cell count and intermittent tachycardia however he is not consistently tachycardic. Patient did receive fluid bolus based off of ideal body weight. 01/30/19 15:47 - Vital Signs Vital signs: Temp Pulse Resp BP Pulse Ox 98.2 F 105 H 14 114/74 100 01/30/19 11:10 01/30/19 11:10 01/30/19 15:01 01/30/19 15:01 01/30/19 15:01 - Laboratory Result Diagrams: 01/30/19 11:40 01/30/19 11:40 Laboratory results interpreted by me: 01/30/19 01/30/19 01/30/19 11:37 11:40 11:40 WBC 18.5 H RBC 3.79 L Hgb 11.7 L Hct 34.2 L Absolute Neutrophils 13.9 H Absolute Monocytes 1.7 H Sodium 132.3 L Carbon Dioxide 19 L BUN 52 H Creatinine 2.46 H Est GFR ( Amer) 34 L Est GFR (Non-Af Amer) 28 L Glucose 360 H POC Glucose 390 H AST 104 H ALT 135 H Creatine Kinase Free T3 pg/mL Urine Protein Urine Blood Ur Leukocyte Esterase 01/30/19 01/30/19 01/30/19 11:40 11:40 14:15 WBC RBC Hgb Hct Absolute Neutrophils Absolute Monocytes Sodium Carbon Dioxide BUN Creatinine Est GFR ( Amer) Est GFR (Non-Af Amer) Glucose POC Glucose AST ALT Creatine Kinase 304 H Free T3 pg/mL 2.59 L Urine Protein 100 H Urine Blood SMALL H Ur Leukocyte Esterase LARGE H - EKG Interpretation by Me Additional EKG results interpreted by me: 01/30/19 15:45 EKG shows sinus rhythm at a rate of 96, normal normal intervals, no ST segment elevations or depressions, no T wave inversions per my interpretation. Critical Care Note - Critical Care Note Total time excluding time spent on procedures (mins): 35 Discharge - Discharge Clinical Impression: Pyelonephritis Condition: Fair Disposition: ADMITTED INPATIENT Admitting Provider: [facility] (Hospitalist) Unit Admitted: Telemetry Referrals: [facility] [Primary [facility]] - Follow up as needed I personally performed the services described in the documentation, reviewed and edited the documentation which was dictated to the scribe in my presence, and it accurately records my words and actions.
[2019-01-30] MEDS ORDERED: TEMAZEPAM 15 MG CAPSULE PO PRN (15:51)
[2019-01-30] MEDS ORDERED: ONDANSETRON HCL INJ/PF 4 MG/2 ML SDV IV PRN (15:51)
[2019-01-30] MEDS ORDERED: DEXTROSE 50%-WATER 25 GM/50 ML DISP.SYRIN IV PRN ×2 (15:56)
[2019-01-30] MEDS ORDERED: GLUCAGON,HUMAN RECOMB 1 MG INJ IM PRN (15:56)
[2019-01-30] MEDS ORDERED: DEXTROSE 40% GEL 15 GM TUBE PO PRN ×2 (15:56)
--- NOTE | 2019-01-30 16:09 | PDOC H&P ---
History of Present Illness Admission Date/PCP: [facility] History of Present Illness: BRYCE ISIDRO is a 48 year old male patient was past medical history of hyperlipidemia [place], hypothyroidism, hypertension, type 2 diabetes mellitus, tobacco dependence he smokes a pack a day presented with chief complaint of chills, nausea, vomiting, dizziness and lightheadedness. Patient has been in his usual baseline state of up until 1 week when he started to have the above- mentioned complaints. Patient states that he noticed the symptoms at around the same time that his Synthroid was increased from 75 mg 100 mg. He denies any headache, blurring of vision or any seizure activity. His urinalysis shows pyuria and leukocyte esterase. His blood work shows leukocytosis of 18,000, BUN of 52 creatinine of 2.46. Patient empirically started on Rocephin given IV hydration and referred to the hospital service for admission. Past Medical History Cardiac Medical History: Reports: Myocardial Infarction, Hyperlipidema, Hypertension Endocrine Medical History: Reports: Diabetes Mellitus Type 2 Social History Lives with: Family Smoking Status: Current Every Day Smoker Frequency of Alcohol Use: None Hx Recreational Drug Use: No Hx Prescription Drug Abuse: No - Advance Directive Resuscitation Status: Full Code Family History Family History: Reviewed & Not Pertinent Parental Family History Reviewed: Yes Children Family History Reviewed: Yes Sibling(s) Family History Reviewed.: Yes Medication/Allergy Home Medications: Gabapentin 300 mg PO TID #90 capsule 04/28/17 Lidocaine [Lidoderm 5% (700 mg) Transdermal Patch] 1 patch TP DAILY #30 adh..patch 04/28/17 Oxycodone HCl/Acetaminophen [Percocet 5-325 mg Tablet] 1 tab PO Q6HP PRN #20 tablet 04/28/17 Cyclobenzaprine HCl [Flexeril 10 mg Tablet] 10 mg PO TIDP PRN #20 tab 12/30/17 Hydrocodone/Acetaminophen [[place] 5-325 Tablet] 1 - 2 tab PO Q6HP PRN #20 tab 12/30/17 Ibuprofen [Motrin 800 mg Tablet] 800 mg PO Q8H PRN #30 tab 12/30/17 Penicillin V Potassium [Penicillin Vk 500 mg Tablet] 500 mg PO TID #30 tablet 12/30/17 Allergies/Adverse Reactions: No Known Allergies Allergy (Verified 01/30/19 10:58) Review of Systems Constitutional: PRESENT: chills Eyes: ABSENT: visual disturbances Ears: ABSENT: hearing changes Cardiovascular: ABSENT: chest pain, dyspnea on exertion, edema, orthropnea, palpitations Respiratory: ABSENT: cough, hemoptysis Gastrointestinal: PRESENT: diarrhea, nausea, vomiting Genitourinary: ABSENT: dysuria, hematuria Musculoskeletal: ABSENT: joint swelling Integumentary: ABSENT: rash, wounds Neurological: PRESENT: dizziness Psychiatric: ABSENT: anxiety, depression, homidical ideation, suicidal ideation Endocrine: ABSENT: cold intolerance, heat intolerance, polydipsia, polyuria Hematologic/Lymphatic: ABSENT: easy bleeding, easy bruising Physical Exam Vital Signs: Temp Pulse Resp BP Pulse Ox 99.8 F 105 H 14 114/74 100 01/30/19 15:45 01/30/19 11:10 01/30/19 15:01 01/30/19 15:01 01/30/19 15:01 Intake & Output 01/29/19 01/30/19 01/31/19 06:59 06:59 06:59 Intake Total 2050 Output Total 280 Balance 1770 Weight 79.1 kg General appearance: PRESENT: no acute distress Head exam: PRESENT: atraumatic Teeth exam: PRESENT: poor dentation Neck exam: ABSENT: carotid bruit, JVD, lymphadenopathy, thyromegaly Respiratory exam: PRESENT: clear to auscultation chayo. ABSENT: rales, rhonchi, w heezes Cardiovascular exam: PRESENT: RRR. ABSENT: diastolic murmur, rubs, systolic murmur GI/Abdominal exam: PRESENT: normal bowel sounds, soft. ABSENT: distended, guarding, mass, organolmegaly, rebound, tenderness Neurological exam: PRESENT: alert, awake, oriented to person, oriented to place, oriented to time, oriented to situation Psychiatric exam: PRESENT: normal mood Results Laboratory Results: 01/30/19 11:40 01/30/19 11:40 01/30/19 01/30/19 01/30/19 11:40 11:40 11:40 WBC 18.5 H RBC 3.79 L Hgb 11.7 L Hct 34.2 L MCV 90 MCH 30.9 MCHC 34.2 RDW 12.7 Plt Count 244 Seg Neutrophils % 75.5 Lymphocytes % 15.0 Monocytes % 9.1 Eosinophils % 0.0 Basophils % 0.4 Absolute Neutrophils 13.9 H Absolute Lymphocytes 2.8 Absolute Monocytes 1.7 H Absolute Eosinophils 0.0 Absolute Basophils 0.1 VBG pH VBG pCO2 VBG HCO3 VBG Base Excess Sodium 132.3 L Potassium 5.0 Chloride 99 Carbon Dioxide 19 L Anion Gap 14 BUN 52 H Creatinine 2.46 H Est GFR ( Amer) 34 L Est GFR (Non-Af Amer) 28 L Glucose 360 H Lactic Acid 2.1 Calcium 9.6 Total Bilirubin 0.5 AST 104 H ALT 135 H Alkaline Phosphatase 119 Total Protein 7.1 Albumin 3.9 Lipase TSH Free T4 Free T3 pg/mL Urine Color Urine Appearance Urine pH Ur Specific [place] Urine Protein Urine Glucose (UA) Urine Ketones Urine Blood Urine Nitrite Ur Leukocyte Esterase Urine WBC (Auto) Urine RBC (Auto) 01/30/19 01/30/19 01/30/19 11:40 11:40 11:40 WBC RBC Hgb Hct MCV MCH MCHC RDW Plt Count Seg Neutrophils % Lymphocytes % Monocytes % Eosinophils % Basophils % Absolute Neutrophils Absolute Lymphocytes Absolute Monocytes Absolute Eosinophils Absolute Basophils VBG pH 7.38 VBG pCO2 35.3 VBG HCO3 20.4 VBG Base Excess -3.9 Sodium Potassium Chloride Carbon Dioxide Anion Gap BUN Creatinine Est GFR ( Amer) Est GFR (Non-Af Amer) Glucose Lactic Acid Calcium Total Bilirubin AST ALT Alkaline Phosphatase Total Protein Albumin Lipase 186.1 TSH 3.15 Free T4 1.47 Free T3 pg/mL 2.59 L Urine Color Urine Appearance Urine pH Ur Specific [place] Urine Protein Urine Glucose (UA) Urine Ketones Urine Blood Urine Nitrite Ur Leukocyte Esterase Urine WBC (Auto) Urine RBC (Auto) 01/30/19 14:15 WBC RBC Hgb Hct MCV MCH MCHC RDW Plt Count Seg Neutrophils % Lymphocytes % Monocytes % Eosinophils % Basophils % Absolute Neutrophils Absolute Lymphocytes Absolute Monocytes Absolute Eosinophils Absolute Basophils VBG pH VBG pCO2 VBG HCO3 VBG Base Excess Sodium Potassium Chloride Carbon Dioxide Anion Gap BUN Creatinine Est GFR ( Amer) Est GFR (Non-Af Amer) Glucose Lactic Acid Calcium Total Bilirubin AST ALT Alkaline Phosphatase Total Protein Albumin Lipase TSH Free T4 Free T3 pg/mL Urine Color LUIS CARLOS Urine Appearance CLOUDY Urine pH 5.0 Ur Specific [place] 1.015 Urine Protein 100 H Urine Glucose (UA) NEGATIVE Urine Ketones NEGATIVE Urine Blood SMALL H Urine Nitrite NEGATIVE Ur Leukocyte Esterase LARGE H Urine WBC (Auto) >182 Urine RBC (Auto) 7 01/30/19 01/30/19 01/30/19 11:40 11:40 11:40 Creatine Kinase 304 H CK-MB (CK-2) 3.17 Troponin I < 0.012 Impressions: Chest X-Ray 01/30/19 11:16 IMPRESSION: No acute abnormality of the lungs in frontal projection. Assessment and Plan - Diagnosis (1) Pyelonephritis Is this a current diagnosis for this admission?: Yes Plan: Patient has been started on ceftriaxone. (2) Acute kidney injury Is this a current diagnosis for this admission?: Yes Plan: Most probably due to dehydration. Patient has been started on normal saline at rate of 200 mm/h and will check her function in a.m. (3) Leukocytosis Is this a current diagnosis for this admission?: Yes Plan: We will monitor his CBC. (4) Type 2 diabetes mellitus Is this a current diagnosis for this admission?: Yes Plan: I will hold his metformin because of his depressed renal function. And will start him on sliding scale. (5) Hypothyroidism (acquired) Is this a current diagnosis for this admission?: Yes Plan: Continue Synthroid (6) Hypertension Qualifiers: Hypertension type: essential hypertension Qualified Code(s): I10 - Essential (primary) hypertension Is this a current diagnosis for this admission?: Yes Plan: Continue home medication. (7) Hyperlipidemia Qualifiers: Hyperlipidemia type: unspecified Qualified Code(s): E78.5 - Hyperlipidemia, unspecified Is this a current diagnosis for this admission?: Yes Plan: Continue home medication. (8) Everyday smoker Is this a current diagnosis for this admission?: Yes Plan: Patient smokes a pack a day. Patient counseled and encouraged to quit smoking. I offered him nicotine patch but patient declined. - Inpatient Certification Medical Necessity: Need Close Monitoring Due to Risk of Patient Decompensation, Need For IV Fluids, Need for IV Antibiotics
[2019-01-30] MEDS: INSULIN LISPRO 100 UNIT/ML 3 ML VIAL SUBCUT SCH ×2 (16:20→22:39)
[2019-01-30] MEDS: NORMAL SALINE 1000 ML 1,000 ML IV PRN (17:56)
[2019-01-30] MEDS ORDERED: DOCUSATE SODIUM 100 MG/10 ML UDC PO SCH (18:00)
[2019-01-30] MEDS: GABAPENTIN 300 MG CAPSULE PO SCH (18:47)
[2019-01-30] MEDS: FAMOTIDINE 20 MG TABLET PO SCH (18:47)
[2019-01-30] MEDS: IBUPROFEN 800 MG TABLET PO PRN (18:47)
[2019-01-30] MEDS ORDERED: IBUPROFEN 400 MG TABLET PO ONE (19:00)
--- NOTE | 2019-01-30 20:39 | EKG REPORT ---
SEVERITY:- NORMAL ECG - SINUS RHYTHM : Confirmed by: Neli Maki MD 30-Jan-2019 20:39:00
[2019-01-30] MEDS ORDERED: FAMOTIDINE 20 MG TABLET PO SCH ×2 (22:00)
[2019-01-30] MEDS: HEPARIN SOD (PORCINE) 5,000 UNIT/ML 1 ML SYRINGE SUBCUT SCH (22:34)
[2019-01-30] MEDS: ACETAMINOPHEN 325 MG TABLET PO PRN (22:40)
[2019-01-30] MEDS: ATORVASTATIN CALCIUM 40 MG TABLET PO SCH (22:40)
[2019-01-30] MEDS: CYCLOBENZAPRINE HCL 10 MG TABLET PO SCH (22:49)
[2019-01-31] MEDS: NORMAL SALINE 1000 ML 1,000 ML IV PRN ×4 (02:30→23:09)
[2019-01-31] MEDS: LEVOTHYROXINE SODIUM 0.1 MG TABLET PO SCH (06:22)
[2019-01-31] MEDS: GABAPENTIN 300 MG CAPSULE PO SCH ×3 (06:22→21:38)
[2019-01-31] MEDS: ACETAMINOPHEN 325 MG TABLET PO PRN (06:22)
[2019-01-31] MEDS: HEPARIN SOD (PORCINE) 5,000 UNIT/ML 1 ML SYRINGE SUBCUT SCH ×3 (06:24→21:38)
[2019-01-31] MEDS: CYCLOBENZAPRINE HCL 10 MG TABLET PO SCH ×3 (06:24→21:40)
[2019-01-31] MEDS: INSULIN LISPRO 100 UNIT/ML 3 ML VIAL SUBCUT SCH ×4 (08:08→21:37)
[2019-01-31 08:10] LABS: ABSOLUTE BASOPHILS # (AUTO) 0.1 10^3/uL (0.0-0.2); ABSOLUTE EOSINOPHILS # (AUTO) 0.1 10^3/uL (0.0-0.6); ABSOLUTE LYMPHOCYTES (AUTO) 1.2 10^3/uL (0.5-4.7); ABSOLUTE MONOCYTES (AUTO) 0.9 10^3/uL (0.1-1.4); ABSOLUTE NEUT (AUTO) 8.9 10^3/uL (1.7-8.2); BASOPHILS % (AUTO) 0.5 % (0-2); EOSINOPHILS % (AUTO) 0.8 % (0-6); HEMATOCRIT 28.6 % (37.9-51.0); HEMOGLOBIN 9.8 g/dL (13.5-17.0); LYMPHOCYTES % (AUTO) 10.8 % (13-45); MEAN CORPUSCULAR HEMOGLOBIN 30.6 pg (27.0-33.4); MEAN CORPUSCULAR HGB CONC 34.3 g/dL (32.0-36.0); MEAN CORPUSCULAR VOLUME 90 fl (80-97); MONOCYTES % (AUTO) 8.3 % (3-13); PLATELET COUNT 196 10^3/uL (150-450); RED CELL DISTRIBUTION WIDTH 12.8 % (11.5-14.0); SEGMENTED NEUTROPHILS % (AUTO) 79.6 % (42-78); TOTAL CELLS COUNTED % (AUTO) 100 %; WHITE BLOOD COUNT 11.2 10^3/uL (4.0-10.5)
[2019-01-31 08:40] LABS: ANION GAP 9 (5-19); CALCIUM 7.9 mg/dL (8.4-10.2); CARBON DIOXIDE 18 mmol/L (22-30); CHLORIDE 108 mmol/L (98-107); GLUCOSE 140 mg/dL (75-110); POTASSIUM 4.5 mmol/L (3.6-5.0); SODIUM 135.2 mmol/L (137-145)
[2019-01-31 08:55] LABS: BLOOD UREA NITROGEN 33 mg/dL (7-20)
[2019-01-31] MEDS: LISINOPRIL 10 MG TABLET PO SCH (10:00)
[2019-01-31] MEDS: DOCUSATE SODIUM 100 MG CAPSULE PO SCH ×2 (11:51→19:23)
[2019-01-31] MEDS: CHOLECALCIFEROL (D3) 1,000 UNIT (25 MCG) TABLET PO SCH (11:56)
[2019-01-31] MEDS ORDERED: CEFTRIAXONE 2 GM/D5W RTU 2 GM/50 ML RTUPB IV SCH (12:00)
[2019-01-31] MEDS: IBUPROFEN 800 MG TABLET PO PRN (13:55)
[2019-01-31] MEDS: PIPERACILLIN SODIUM/TAZOBACTAM 4.5 GM in NORMAL SALINE 100 ML IV SCH ×2 (16:39→23:08)
--- NOTE | 2019-01-31 16:44 | PDOC PROGRESS REPORT ---
Subjective Progress Note for:: 01/31/19 Subjective:: BRYCE ISIDRO is a 48 year old male patient was past medical history of hyperlipidemia [place], hypothyroidism, hypertension, type 2 diabetes mellitus, tobacco dependence he smokes a pack a day presented with chief complaint of chills, nausea, vomiting, dizziness and lightheadedness. Patient has been in his usual baseline state of up until 1 week when he started to have the above- mentioned complaints. Patient states that he noticed the symptoms at around the same time that his Synthroid was increased from 75 mg 100 mg. He denies any headache, blurring of vision or any seizure activity. His urinalysis shows pyuria and leukocyte esterase. His blood work shows leukocytosis of 18,000, BUN of 52 creatinine of 2.46. Patient empirically started on Rocephin given IV hydration and referred to the hospital service for admission. 01/31/2019: This morning patient seen lying in bed. He is awake alert oriented. He reports this has some improvement. Still he has intermittent fever and shaking chills. 2 bottles of blood culture positive for gram-negative urbano. I switched his ceftriaxone to Zosyn. His blood work is showing some improvement evidenced by his white cell count was 18.5 yesterday today it is 11.2 and his creatinine yesterday it was 2.46 today it is 1.23. Reason For Visit: PYELONEPHRITIS,ACUTE KIDNEY INJURY Physical Exam Vital Signs: Temp Pulse Resp BP Pulse Ox 103.0 F H 99 17 115/61 93 01/31/19 13:43 01/31/19 13:43 01/31/19 13:43 01/31/19 13:43 01/31/19 13:43 Intake & Output 01/30/19 01/31/19 02/01/19 06:59 06:59 06:59 Intake Total 4070 1050 Output Total 1580 Balance 2490 1050 Weight 80.7 kg General appearance: PRESENT: mild distress Head exam: PRESENT: atraumatic Teeth exam: PRESENT: poor dentation Neck exam: ABSENT: carotid bruit, JVD, lymphadenopathy, thyromegaly Respiratory exam: PRESENT: clear to auscultation chayo. ABSENT: rales, rhonchi, wheezes Cardiovascular exam: PRESENT: RRR. ABSENT: diastolic murmur, rubs, systolic mu rmur GI/Abdominal exam: PRESENT: normal bowel sounds, soft. ABSENT: distended, guarding, mass, organolmegaly, rebound, tenderness Neurological exam: PRESENT: alert, awake, oriented to person, oriented to place, oriented to time, oriented to situation Results Laboratory Results: 01/31/19 07:58 01/31/19 07:58 01/31/19 01/31/19 07:58 07:58 WBC 11.2 H RBC 3.20 L Hgb 9.8 L Hct 28.6 L MCV 90 MCH 30.6 MCHC 34.3 RDW 12.8 Plt Count 196 Seg Neutrophils % 79.6 H Lymphocytes % 10.8 L Monocytes % 8.3 Eosinophils % 0.8 Basophils % 0.5 Absolute Neutrophils 8.9 H Absolute Lymphocytes 1.2 Absolute Monocytes 0.9 Absolute Eosinophils 0.1 Absolute Basophils 0.1 Sodium 135.2 L Potassium 4.5 Chloride 108 H Carbon Dioxide 18 L Anion Gap 9 BUN 33 H Creatinine 1.23 Est GFR ( Amer) > 60 Est GFR (Non-Af Amer) > 60 Glucose 140 H Calcium 7.9 L 01/30/19 01/30/19 01/30/19 11:40 11:40 11:40 Creatine Kinase 304 H CK-MB (CK-2) 3.17 Troponin I < 0.012 Impressions: Chest X-Ray 01/30/19 11:16 IMPRESSION: No acute abnormality of the lungs in frontal projection. Assessment and Plan - Diagnosis (1) Sepsis of urinary tract origin Is this a current diagnosis for this admission?: Yes Plan: Sepsis as evidenced by intermittent fever, tachycardia, leukocytosis and organ involvement. He is ceftriaxone and switch to Zosyn. (2) Pyelonephritis Is this a current diagnosis for this admission?: Yes Plan: I switched his ceftriaxone to Zosyn. And repeat blood culture is requested. (3) Acute kidney injury Is this a current diagnosis for this admission?: Yes Plan: Improving (4) Leukocytosis Is this a current diagnosis for this admission?: Yes Plan: Trending down. (5) Type 2 diabetes mellitus Is this a current diagnosis for this admission?: Yes Plan: I will hold his metformin because of his depressed renal function. And will start him on sliding scale. (6) Hypothyroidism (acquired) Is this a current diagnosis for this admission?: Yes Plan: Continue Synthroid (7) Hypertension Qualifiers: Hypertension type: essential hypertension Qualified Code(s): I10 - Essential (primary) hypertension Is this a current diagnosis for this admission?: Yes Plan: Continue home medication. (8) Hyperlipidemia Qualifiers: Hyperlipidemia type: unspecified Qualified Code(s): E78.5 - Hyperlipidemia, unspecified Is this a current diagnosis for this admission?: Yes Plan: Continue home medication. (9) Everyday smoker Is this a current diagnosis for this admission?: Yes Plan: Patient smokes a pack a day. Patient counseled and encouraged to quit smoking. I offered him nicotine patch but patient declined.
[2019-01-31] MEDS: ATORVASTATIN CALCIUM 40 MG TABLET PO SCH (21:38)
[2019-01-31] MEDS: FAMOTIDINE 20 MG TABLET PO SCH (21:38)
[2019-02-01] MEDS: LEVOTHYROXINE SODIUM 0.1 MG TABLET PO SCH (05:42)
[2019-02-01] MEDS: PIPERACILLIN SODIUM/TAZOBACTAM 4.5 GM in NORMAL SALINE 100 ML IV SCH (05:42)
[2019-02-01] MEDS: GABAPENTIN 300 MG CAPSULE PO SCH ×3 (05:42→21:09)
[2019-02-01] MEDS: HEPARIN SOD (PORCINE) 5,000 UNIT/ML 1 ML SYRINGE SUBCUT SCH ×3 (05:44→21:04)
[2019-02-01] MEDS: CYCLOBENZAPRINE HCL 10 MG TABLET PO SCH ×3 (05:44→21:04)
[2019-02-01] MEDS: ACETAMINOPHEN 325 MG TABLET PO PRN ×2 (05:49→21:09)
[2019-02-01 05:51] LABS: ABSOLUTE EOSINOPHILS # (AUTO) 0.1 10^3/uL (0.0-0.6); ABSOLUTE LYMPHOCYTES (AUTO) 1.8 10^3/uL (0.5-4.7); ABSOLUTE MONOCYTES (AUTO) 0.9 10^3/uL (0.1-1.4); ABSOLUTE NEUT (AUTO) 5.6 10^3/uL (1.7-8.2); BASOPHILS % (AUTO) 0.4 % (0-2); EOSINOPHILS % (AUTO) 1.4 % (0-6); HEMATOCRIT 28.6 % (37.9-51.0); HEMOGLOBIN 9.9 g/dL (13.5-17.0); LYMPHOCYTES % (AUTO) 21.3 % (13-45); MEAN CORPUSCULAR HEMOGLOBIN 31.3 pg (27.0-33.4); MEAN CORPUSCULAR HGB CONC 34.7 g/dL (32.0-36.0); MEAN CORPUSCULAR VOLUME 90 fl (80-97); MONOCYTES % (AUTO) 10.8 % (3-13); PLATELET COUNT 204 10^3/uL (150-450); RED BLOOD COUNT 3.17 10^6/uL (4.35-5.55); RED CELL DISTRIBUTION WIDTH 12.7 % (11.5-14.0); SEGMENTED NEUTROPHILS % (AUTO) 66.1 % (42-78); TOTAL CELLS COUNTED % (AUTO) 100 %; WHITE BLOOD COUNT 8.5 10^3/uL (4.0-10.5)
[2019-02-01 06:06] LABS: ANION GAP 9 (5-19); BLOOD UREA NITROGEN 19 mg/dL (7-20); CALCIUM 8.1 mg/dL (8.4-10.2); CARBON DIOXIDE 18 mmol/L (22-30); CHLORIDE 110 mmol/L (98-107); GLUCOSE 130 mg/dL (75-110); POTASSIUM 4.4 mmol/L (3.6-5.0); SODIUM 137.2 mmol/L (137-145)
[2019-02-01] MEDS: INSULIN LISPRO 100 UNIT/ML 3 ML VIAL SUBCUT SCH ×4 (07:23→21:08)
[2019-02-01] MEDS: LISINOPRIL 10 MG TABLET PO SCH (09:27)
[2019-02-01] MEDS: DOCUSATE SODIUM 100 MG CAPSULE PO SCH ×2 (09:28→17:01)
[2019-02-01] MEDS: CEFTRIAXONE 2 GM/D5W RTU 2 GM/50 ML RTUPB IV SCH (10:05)
[2019-02-01] MEDS: CHOLECALCIFEROL (D3) 1,000 UNIT (25 MCG) TABLET PO SCH (10:05)
--- NOTE | 2019-02-01 13:10 | PDOC PROGRESS REPORT ---
Subjective Progress Note for:: 02/01/19 Subjective:: BRYCE ISIDRO is a 48 year old male patient was past medical history of hyperlipidemia [place], hypothyroidism, hypertension, type 2 diabetes mellitus, tobacco dependence he smokes a pack a day presented with chief complaint of chills, nausea, vomiting, dizziness and lightheadedness. Patient has been in his usual baseline state of up until 1 week when he started to have the above- mentioned complaints. Patient states that he noticed the symptoms at around the same time that his Synthroid was increased from 75 mg 100 mg. He denies any headache, blurring of vision or any seizure activity. His urinalysis shows pyuria and leukocyte esterase. His blood work shows leukocytosis of 18,000, BUN of 52 creatinine of 2.46. Patient empirically started on Rocephin given IV hydration and referred to the hospital service for admission. 01/31/2019: This morning patient seen lying in bed. He is awake alert oriented. He reports this has some improvement. Still he has intermittent fever and shaking chills. 2 bottles of blood culture positive for gram-negative urbano. I switched his ceftriaxone to Zosyn. His blood work is showing some improvement evidenced by his white cell count was 18.5 yesterday today it is 11.2 and his creatinine yesterday it was 2.46 today it is 1.23. 02/01/2019: Patient seen resting in bed comfortably. His fever has subsided. His blood work shows his leukocytosis has resolved at admission his white cell count was 18.5 today it is 8.5 and his creatinine was 2.462 date is 1.09. I discontinued his fluid. His blood culture is positive for E. coli which is pansensitive so I switched to Zosyn to ceftriaxone. Reason For Visit: PYELONEPHRITIS,ACUTE KIDNEY INJURY Physical Exam Vital Signs: Temp Pulse Resp BP Pulse Ox 100.1 F 91 15 129/74 H 99 01/31/19 23:27 01/31/19 23:27 01/31/19 23:27 01/31/19 23:27 01/31/19 23:27 Intake & Output 01/31/19 02/01/19 02/02/19 06:59 06:59 06:59 Intake Total 4070 4070 50 Output Total 1580 2400 Balance 2490 1670 50 Weight 80.7 kg 80.7 kg General appearance: PRESENT: no acute distress Neurological exam: PRESENT: alert, awake, oriented to person, oriented to place, oriented to time, oriented to situation Results Laboratory Results: 02/01/19 05:23 02/01/19 05:23 02/01/19 02/01/19 05:23 05:23 WBC 8.5 RBC 3.17 L Hgb 9.9 L Hct 28.6 L MCV 90 MCH 31.3 MCHC 34.7 RDW 12.7 Plt Count 204 Seg Neutrophils % 66.1 Lymphocytes % 21.3 Monocytes % 10.8 Eosinophils % 1.4 Basophils % 0.4 Absolute Neutrophils 5.6 Absolute Lymphocytes 1.8 Absolute Monocytes 0.9 Absolute Eosinophils 0.1 Absolute Basophils 0.0 Sodium 137.2 Potassium 4.4 Chloride 110 H Carbon Dioxide 18 L Anion Gap 9 BUN 19 Creatinine 1.09 Est GFR ( Amer) > 60 Est GFR (Non-Af Amer) > 60 Glucose 130 H Calcium 8.1 L 01/30/19 14:15 Clean Catch Midstream Urine Culture - Final Escherichia Coli 01/30/19 13:21 Blood Blood Culture - Final Escherichia Coli 01/30/19 01/30/19 01/30/19 11:40 11:40 11:40 Creatine Kinase 304 H CK-MB (CK-2) 3.17 Troponin I < 0.012 Impressions: Chest X-Ray 01/30/19 11:16 IMPRESSION: No acute abnormality of the lungs in frontal projection. Assessment and Plan - Diagnosis (1) Sepsis of urinary tract origin Is this a current diagnosis for this admission?: Yes Plan: Sepsis as evidenced by intermittent fever, tachycardia, leukocytosis and organ involvement. He is ceftriaxone and switch to Zosyn. (2) Pyelonephritis Is this a current diagnosis for this admission?: Yes Plan: I switched his ceftriaxone to Zosyn. And repeat blood culture is requested. (3) Acute kidney injury Is this a current diagnosis for this admission?: Yes Plan: Has resolved (4) Leukocytosis Is this a current diagnosis for this admission?: Yes Plan: Has resolved (5) Type 2 diabetes mellitus Is this a current diagnosis for this admission?: Yes Plan: I will hold his metformin because of his depressed renal function. And will start him on sliding scale. (6) Hypothyroidism (acquired) Is this a current diagnosis for this admission?: Yes Plan: Continue Synthroid (7) Hypertension Qualifiers: Hypertension type: essential hypertension Qualified Code(s): I10 - Essential (primary) hypertension Is this a current diagnosis for this admission?: Yes Plan: Continue home medication. (8) Hyperlipidemia Qualifiers: Hyperlipidemia type: unspecified Qualified Code(s): E78.5 - Hyperlipidemia, unspecified Is this a current diagnosis for this admission?: Yes Plan: Continue home medication. (9) Everyday smoker Is this a current diagnosis for this admission?: Yes Plan: Patient smokes a pack a day. Patient counseled and encouraged to quit smoking. I offered him nicotine patch but patient declined.
[2019-02-01] MEDS: ATORVASTATIN CALCIUM 40 MG TABLET PO SCH (21:09)
[2019-02-01] MEDS: FAMOTIDINE 20 MG TABLET PO SCH (21:09)
[2019-02-02 05:37] LABS: ABSOLUTE BASOPHILS # (AUTO) 0.1 10^3/uL (0.0-0.2); ABSOLUTE EOSINOPHILS # (AUTO) 0.3 10^3/uL (0.0-0.6); ABSOLUTE LYMPHOCYTES (AUTO) 2.6 10^3/uL (0.5-4.7); ABSOLUTE MONOCYTES (AUTO) 0.9 10^3/uL (0.1-1.4); BASOPHILS % (AUTO) 0.7 % (0-2); EOSINOPHILS % (AUTO) 3.9 % (0-6); HEMATOCRIT 31.3 % (37.9-51.0); HEMOGLOBIN 10.9 g/dL (13.5-17.0); MEAN CORPUSCULAR HEMOGLOBIN 30.9 pg (27.0-33.4); MEAN CORPUSCULAR HGB CONC 34.9 g/dL (32.0-36.0); MEAN CORPUSCULAR VOLUME 89 fl (80-97); MONOCYTES % (AUTO) 10.4 % (3-13); PLATELET COUNT 227 10^3/uL (150-450); RED BLOOD COUNT 3.54 10^6/uL (4.35-5.55); RED CELL DISTRIBUTION WIDTH 12.7 % (11.5-14.0); TOTAL CELLS COUNTED % (AUTO) 100 %; WHITE BLOOD COUNT 8.9 10^3/uL (4.0-10.5)
[2019-02-02] MEDS: GABAPENTIN 300 MG CAPSULE PO SCH (05:42)
[2019-02-02] MEDS: CYCLOBENZAPRINE HCL 10 MG TABLET PO SCH (05:43)
[2019-02-02] MEDS: LEVOTHYROXINE SODIUM 0.1 MG TABLET PO SCH (05:43)
[2019-02-02] MEDS: HEPARIN SOD (PORCINE) 5,000 UNIT/ML 1 ML SYRINGE SUBCUT SCH (05:43)
[2019-02-02 05:59] LABS: ANION GAP 11 (5-19); BLOOD UREA NITROGEN 13 mg/dL (7-20); CARBON DIOXIDE 20 mmol/L (22-30); CHLORIDE 107 mmol/L (98-107); GLUCOSE 139 mg/dL (75-110); POTASSIUM 4.5 mmol/L (3.6-5.0); SODIUM 138.1 mmol/L (137-145)
[2019-02-02] MEDS: INSULIN LISPRO 100 UNIT/ML 3 ML VIAL SUBCUT SCH (07:52)
[2019-02-02 08:31] VITALS: BP 137/74
[2019-02-02] MEDS: DOCUSATE SODIUM 100 MG CAPSULE PO SCH (09:24)
[2019-02-02] MEDS: CHOLECALCIFEROL (D3) 1,000 UNIT (25 MCG) TABLET PO SCH (09:28)
[2019-02-02] MEDS: CEFTRIAXONE 2 GM/D5W RTU 2 GM/50 ML RTUPB IV SCH (09:29)
[2019-02-02] MEDS: LISINOPRIL 10 MG TABLET PO SCH (09:29)
--- NOTE | 2019-02-02 09:36 | PDOC DISCHARGE SUMMARY ---
General - Admit/Disc Date/PCP Admission Date/Primary Care Provider: 01/30/19 15:56 [facility] Discharge Date: 02/02/19 - Discharge Diagnosis (1) Sepsis of urinary tract origin Is this a current diagnosis for this admission?: Yes (2) Pyelonephritis Is this a current diagnosis for this admission?: Yes (3) Acute kidney injury Is this a current diagnosis for this admission?: Yes (4) Leukocytosis Is this a current diagnosis for this admission?: Yes (5) Type 2 diabetes mellitus Is this a current diagnosis for this admission?: Yes (6) Hypothyroidism (acquired) Is this a current diagnosis for this admission?: Yes (7) Hypertension Is this a current diagnosis for this admission?: Yes (8) Hyperlipidemia Is this a current diagnosis for this admission?: Yes (9) Everyday smoker Is this a current diagnosis for this admission?: Yes - Additional Information Resuscitation Status: Full Code Home Medications: Atorvastatin Calcium [Lipitor 40 mg Tablet] 40 mg PO QHS 01/30/19 Cholecalciferol (Vitamin D3) [Vitamin D3 1000 Unit Tablet] 1,000 unit PO DAILY 01/30/19 Cyclobenzaprine HCl [Flexeril 10 mg Tablet] 10 mg PO Q8 01/30/19 Gabapentin [Neurontin] 600 mg PO Q8 01/30/19 Ibuprofen [Motrin 800 mg Tablet] 800 mg PO Q8HP PRN 01/30/19 Levothyroxine Sodium [Synthroid 0.1 mg Tablet] 0.1 mg PO Q6AM 01/30/19 Lisinopril [Prinivil 40 mg Tablet] 40 mg PO DAILY 01/30/19 Metformin HCl [Glucophage 500 mg Tablet] 1,000 mg PO BID 01/30/19 History of Present Illness History of Present Illness: BRYCE ISIDRO is a 48 year old male patient was past medical history of hyperlipidemia HI, hypothyroidism, hypertension, type 2 diabetes mellitus, tobacco dependence he smokes a pack a day presented with chief complaint of chills, nausea, vomiting, dizziness and lightheadedness. Patient has been in his usual baseline state of up until 1 week when he started to have the above- mentioned complaints. Patient states that he noticed the symptoms at around the same time that his Synthroid was increased from 75 mg 100 mg. He denies any headache, blurring of vision or any seizure activity. His urinalysis shows pyuria and leukocyte esterase. His blood work shows leukocytosis of 18,000, BUN of 52 creatinine of 2.46. Patient empirically started on Rocephin given IV hydration and referred to the hospital service for admission. Hospital Course Hospital Course: BRYCE ISIDRO is a 48 year old male patient was past medical history of hyperlipidemia HI, hypothyroidism, hypertension, type 2 diabetes mellitus, tobacco dependence he smokes a pack a day presented with chief complaint of chills, nausea, vomiting, dizziness and lightheadedness. Patient has been in his usual baseline state of up until 1 week when he started to have the above- mentioned complaints. Patient states that he noticed the symptoms at around the same time that his Synthroid was increased from 75 mg 100 mg. He denies any headache, blurring of vision or any seizure activity. His urinalysis shows pyuria and leukocyte esterase. His blood work shows leukocytosis of 18,000, BUN of 52 creatinine of 2.46. Patient empirically started on Rocephin given IV hydration and referred to the hospital service for admission. 01/31/2019: This morning patient seen lying in bed. He is awake alert oriented. He reports this has some improvement. Still he has intermittent fever and shaking chills. 2 bottles of blood culture positive for gram-negative urbano. I switched his ceftriaxone to Zosyn. His blood work is showing some improvement e videnced by his white cell count was 18.5 yesterday today it is 11.2 and his creatinine yesterday it was 2.46 today it is 1.23. 02/01/2019: Patient seen resting in bed comfortably. His fever has subsided. His blood work shows his leukocytosis has resolved at admission his white cell count was 18.5 today it is 8.5 and his creatinine was 2.462 date is 1.09. I discontinued his fluid. His blood culture is positive for E. coli which is pansensitive so I switched to Zosyn to ceftriaxone. 02/02/2019: Patient seen today resting in bed playing with his iPad. He is awake alert oriented. He is not in pain or any form of distress. His fever subsided. He is eating well and drinking well. No new complaints. Vital signs are within normal limits. His blood works are normalized. Patient is stable enough to be discharged today. I will continue all his home medication and I will send him also with Levaquin 500 mg p.o. daily for 5 days. Physical Exam Vital Signs: Temp Pulse Resp BP Pulse Ox 98.3 F 85 18 137/74 H 98 02/02/19 08:00 02/02/19 08:00 02/02/19 08:00 02/02/19 08:00 02/02/19 08:00 Intake & Output 02/01/19 02/02/19 02/03/19 06:59 06:59 06:59 Intake Total 4070 1827 Output Total 2400 1505 Balance 1670 322 Weight 80.7 kg 81.4 kg General appearance: PRESENT: no acute distress Head exam: PRESENT: atraumatic Teeth exam: PRESENT: poor dentation Neck exam: ABSENT: carotid bruit, JVD, lymphadenopathy, thyromegaly Respiratory exam: PRESENT: clear to auscultation chayo. ABSENT: rales, rhonchi, wheezes Cardiovascular exam: PRESENT: RRR. ABSENT: diastolic murmur, rubs, systolic murmur GI/Abdominal exam: PRESENT: normal bowel sounds, soft. ABSENT: distended, guarding, mass, organolmegaly, rebound, tenderness Neurological exam: PRESENT: alert, awake, oriented to person, oriented to place, oriented to time, oriented to situation Results Laboratory Results: 02/02/19 05:15 02/02/19 05:15 02/02/19 02/02/19 05:15 05:15 WBC 8.9 RBC 3.54 L Hgb 10.9 L Hct 31.3 L MCV 89 MCH 30.9 MCHC 34.9 RDW 12.7 Plt Count 227 Seg Neutrophils % 56.0 Lymphocytes % 29.0 Monocytes % 10.4 Eosinophils % 3.9 Basophils % 0.7 Absolute Neutrophils 5.0 Absolute Lymphocytes 2.6 Absolute Monocytes 0.9 Absolute Eosinophils 0.3 Absolute Basophils 0.1 Sodium 138.1 Potassium 4.5 Chloride 107 Carbon Dioxide 20 L Anion Gap 11 BUN 13 Creatinine 0.77 Est GFR ( Amer) > 60 Est GFR (Non-Af Amer) > 60 Glucose 139 H Calcium 9.0 01/30/19 14:15 Clean Catch Midstream Urine Culture - Final Escherichia Coli 01/30/19 13:21 Blood Blood Culture - Final Escherichia Coli 01/30/19 01/30/19 01/30/19 11:40 11:40 11:40 Creatine Kinase 304 H CK-MB (CK-2) 3.17 Troponin I < 0.012 Impressions: Chest X-Ray 01/30/19 11:16 IMPRESSION: No acute abnormality of the lungs in frontal projection. Qualifiers - * PATIENT BEING DISCHARGED WITH ANY OF THE FOLLOWING DIAGNOSIS: No Acute Heart Failure - Is this a Heart Failure Patient?: No 3. Anticoagulant therapy for permanect/persistent/paraoxysmal Afib or Aflutter: N/A
== END 2019-02-02 10:51 | disposition home or self-care (01) | DRG 872 ==
LOC: ER 10:55 → EH 15:56 → 4S 17:42
PROVIDERS: ADMIT Internal Medicine; ATTEND Internal Medicine
DX: A41.9 Sepsis, unspecified organism (principal); N12 Tubulo-interstitial nephritis, not specified as acute or chronic; N17.9 Acute kidney failure, unspecified; E11.9 Type 2 diabetes mellitus without complications; E03.9 Hypothyroidism, unspecified; I10 Essential (primary) hypertension; E78.5 Hyperlipidemia, unspecified; F17.210 Nicotine dependence, cigarettes, uncomplicated; B96.20 Unspecified Escherichia coli [E. coli] as the cause of diseases classified elsewhere; E86.0 Dehydration; E78.00 Pure hypercholesterolemia, unspecified; Z79.891 Long term (current) use of opiate analgesic; I25.2 Old myocardial infarction; Z79.899 Other long term (current) drug therapy; Z79.84 Long term (current) use of oral hypoglycemic drugs; Z79.1 Long term (current) use of non-steroidal anti-inflammatories (NSAID); Z95.5 Presence of coronary angioplasty implant and graft
CPT/HCPCS: 36415; 71045; 80048; 80053; 81001; 82550; 82553; 82803; 82962; 83605; 83690; 84439; 84443; 84481; 84484; 85025; 85610; 87040; 87077; 87086; 87088; 87186; 93005; 93010; 96361; 96365; 96375; 99291; J0696; J1815; J2405; J2543; J7030; J7050

== ENCOUNTER 2019-08-02 12:38 | Emergency (ER) | payer OTHER, BC ==
--- NOTE | 2019-08-02 13:29 | ER Document Report ---
ED Medical Screen (RME) - General Chief Complaint: Foot Pain Stated Complaint: FEET SWELLING/PAIN/NUMBNESS Time Seen by Provider: 08/02/19 13:19 Primary Care Provider: YAKELIN,ROBERTO [Primary Care Provider] - Follow up as needed Information source: Patient Notes: Patient presents complaining of right foot pain off and on for the past several months it became constant over the past 10 days. Patient states that he has had foot swelling. Patient denies any trauma to the foot. Patient was sent here from his primary doctor's office for labs and x-ray. Patient reports a history of diabetes hypertension dyslipidemia. I have greeted and performed a rapid initial assessment of this patient. A comprehensive ED assessment and evaluation of the patient, analysis of test results and completion of the medical decision making process will be conducted by additional ED providers. TRAVEL OUTSIDE OF THE [place] IN LAST 30 DAYS: No - Related Data Allergies/Adverse Reactions: No Known Allergies Allergy (Verified 08/02/19 13:20) Past Medical History - Social History Chew tobacco use (# tins/day): No Frequency of alcohol use: Occasional Drug Abuse: Marijuana - Past Medical History Cardiac Medical History: Reports: Hx Heart Attack, Hx Hypercholesterolemia, Hx Hypertension Endocrine Medical History: Reports: Hx Diabetes Mellitus Type 2 Renal/ Medical History: Denies: Hx Peritoneal Dialysis Psychiatric Medical History: Denies: Hx Depression Past Surgical History: Reports: Hx Cardiac Surgery - cardiac stent 04/29/2013 - Immunizations Immunizations up to date: Yes Hx Diphtheria, Pertussis, Tetanus Vaccination: Yes Physical Exam - Vital signs Vitals: Temp Pulse Resp BP Pulse Ox 98.1 F 101 H 18 120/81 99 08/02/19 12:52 08/02/19 12:52 08/02/19 12:52 08/02/19 12:52 08/02/19 12:52 - General General appearance: Appears well, Alert Notes: Patient with diffuse right foot tenderness. No obvious trauma or wound. Patient with exaggerated pain response with very minimal palpation. 2+ dorsalis pedis pulse Course - Vital Signs Vital signs: Temp Pulse Resp BP Pulse Ox 98.1 F 101 H 18 120/81 99 08/02/19 13:20 08/02/19 13:20 08/02/19 13:20 08/02/19 13:20 08/02/19 13:20 Doctor's Discharge - Discharge Referrals: [facility] [Primary [facility]] - Follow up as needed
--- NOTE | 2019-08-02 14:11 | RADIOLOGY REPORT (SQ) ---
EXAM DESCRIPTION: FOOT RIGHT COMPLETE COMPLETED DATE/TIME: 08/02/2019 1:56 pm REASON FOR STUDY: r foot pain COMPARISON: None. NUMBER OF VIEWS: Three views. TECHNIQUE: AP, lateral and oblique without weight bearing radiographic images acquired of the right foot. LIMITATIONS: None. FINDINGS: MINERALIZATION: Normal. BONES: No acute fracture or dislocation. No osseous lesions. No sizable osteophytes. JOINTS: No erosions. No manuel-articular osteopenia. No chondrocalcinosis. SOFT TISSUES: No swelling. No calcifications. OTHER: The normal tarsometatarsal alignment is preserved. IMPRESSION: No acute osseous abnormality of the right foot. TECHNICAL DOCUMENTATION: JOB ID: [id number] [employer]- All Rights Reserved Reading location - IP/workstation name: [email or web address]
[2019-08-02 14:39] LABS: ABSOLUTE BASOPHILS # (AUTO) 0.1 10^3/uL (0.0-0.2); ABSOLUTE EOSINOPHILS # (AUTO) 0.6 10^3/uL (0.0-0.6); ABSOLUTE LYMPHOCYTES (AUTO) 4.8 10^3/uL (0.5-4.7); ABSOLUTE MONOCYTES (AUTO) 0.9 10^3/uL (0.1-1.4); ABSOLUTE NEUT (AUTO) 5.5 10^3/uL (1.7-8.2); BASOPHILS % (AUTO) 0.8 % (0-2); EOSINOPHILS % (AUTO) 5.2 % (0-6); HEMATOCRIT 40.2 % (37.9-51.0); HEMOGLOBIN 13.8 g/dL (13.5-17.0); LYMPHOCYTES % (AUTO) 40.2 % (13-45); MEAN CORPUSCULAR HEMOGLOBIN 31.6 pg (27.0-33.4); MEAN CORPUSCULAR HGB CONC 34.4 g/dL (32.0-36.0); MEAN CORPUSCULAR VOLUME 92 fl (80-97); MONOCYTES % (AUTO) 7.3 % (3-13); PLATELET COUNT 214 10^3/uL (150-450); RED BLOOD COUNT 4.37 10^6/uL (4.35-5.55); RED CELL DISTRIBUTION WIDTH 13.1 % (11.5-14.0); SEGMENTED NEUTROPHILS % (AUTO) 46.5 % (42-78); TOTAL CELLS COUNTED % (AUTO) 100 %; WHITE BLOOD COUNT 11.8 10^3/uL (4.0-10.5)
[2019-08-02 14:55] LABS: ALBUMIN 4.7 g/dL (3.5-5.0); ALKALINE PHOSPHATASE 77 U/L (38-126); ANION GAP 11 (5-19); ASPARTATE AMINO TRANSFERASE 33 U/L (17-59); BILIRUBIN,DIRECT 0.2 mg/dL (0.0-0.4); BILIRUBIN,TOTAL 0.3 mg/dL (0.2-1.3); BLOOD UREA NITROGEN 26 mg/dL (7-20); CALCIUM 10.2 mg/dL (8.4-10.2); CARBON DIOXIDE 25 mmol/L (22-30); CHLORIDE 106 mmol/L (98-107); GLUCOSE 183 mg/dL (75-110); POTASSIUM 4.8 mmol/L (3.6-5.0); TOTAL PROTEIN 7.8 g/dL (6.3-8.2); URIC ACID 6.7 mg/dL (3.5-8.5)
[2019-08-02 15:15] LABS: C-REACTIVE PROTEIN < 5.0 mg/L (<10.0)
[2019-08-02 15:17] LABS: ERYTHROCYTE SEDIMENTATION RATE 24 mm/hr (0-20)
--- NOTE | 2019-08-02 16:41 | ER Document Report ---
ED Extremity Problem, Lower - General TRAVEL OUTSIDE OF THE [place] IN LAST 30 DAYS: No <BRYCE HEWITT - Last Filed: 08/02/19 16:40> - General Information source: Patient <MARTY PATEL - Last Filed: 08/02/19 17:14> - General Chief Complaint: Foot Pain Stated Complaint: FEET SWELLING/PAIN/NUMBNESS Time Seen by Provider: 08/02/19 13:30 [facility] Provider: [facility] [Primary [facility]] - Follow up as needed Notes: 49-year-old diabetic male presents to the emergency department with a complaint of right foot pain. States that he has been having symptoms for the past week or so. He has a history diabetic neuropathy and is presently taking Neurontin. States that he is not on aspirin or Plavix. He denies injury. (AMANDAMARTY Lucero) - Related Data Allergies/Adverse Reactions: No Known Allergies Allergy (Verified 08/02/19 13:20) Past Medical History - General Information source: Patient - Social History Smoking Status: Current Every Day Smoker Chew tobacco use (# tins/day): No Frequency of alcohol use: Occasional Drug Abuse: Marijuana Family History: Reviewed & Not Pertinent Patient has suicidal ideation: No Patient has homicidal ideation: No - Past Medical History Cardiac Medical History: Reports: Hx Heart Attack, Hx Hypercholesterolemia, Hx Hypertension Endocrine Medical History: Reports: Hx Diabetes Mellitus Type 2 Renal/ Medical History: Denies: Hx Peritoneal Dialysis Psychiatric Medical History: Denies: Hx Depression Past Surgical History: Reports: Hx Cardiac Surgery - cardiac stent 04/29/2013 - Immunizations Immunizations up to date: Yes Hx Diphtheria, Pertussis, Tetanus Vaccination: Yes <BRYCE HEWITT - Last Filed: 08/02/19 16:40> Review of Systems <MARTY PATEL - Last Filed: 08/02/19 17:14> - Review of Systems Notes: Constitutional: Negative for fever. HENT: Negative for sore throat. Eyes: Negative for visual changes. Cardiovascular: Negative for chest pain. Respiratory: Negative for shortness of breath. Gastrointestinal: Negative for abdominal pain, vomiting or diarrhea. Genitourinary: Negative for dysuria. Musculoskeletal: + Right foot pain Skin: Negative for rash. Neurological: + Burning and tingling lower extremities, no headaches, weakness or numbness. 10 point ROS negative except as marked above and in HPI. (MARTY PATEL) Physical Exam <MARTY PATEL - Last Filed: 08/02/19 17:14> - Vital signs Vitals: Temp Pulse Resp BP Pulse Ox 98.1 F 101 H 18 120/81 99 08/02/19 12:52 08/02/19 12:52 08/02/19 12:52 08/02/19 12:52 08/02/19 12:52 - Notes Notes: PHYSICAL EXAMINATION: Physical Exam: General: Well-nourished well-developed in no acute distress HEENT: NC/AT, pupils equal round and reactive to light, MM moist,nares clear, Neck: supple, no adenopathy, no masses. Lungs: clear, no wheezing, no rales no rhonchi CVS: Regular rate and rhythm no murmur gallop or rub Abdomen: Soft active nontender, no masses, no hepatosplenomegaly Ext: Right foot is pink, warm, dorsalis pedis pulses intact to palpation. Posterior tibialis pulse intact. Neuro: Alert and responsive, moving all 4 extremities on command, cranial nerves intact. Skin: Intact no open lesions, no rash PSYCH: Normal mood, normal affect. (MARTY PATEL) Course - Laboratory Result Diagrams: 08/02/19 14:03 08/02/19 14:03 <BRYCE HEWITT - Last Filed: 08/02/19 16:40> - Laboratory Result Diagrams: 08/02/19 14:03 08/02/19 14:03 - Diagnostic Test Radiology reviewed: Image reviewed, Reports reviewed - X-ray right foot: No acute findings, no fracture Ultrasound arterial study: Arterial narrowing and decreased flow. <MARTY PATEL - Last Filed: 08/02/19 17:14> - Vital Signs Vital signs: Temp Pulse Resp BP Pulse Ox 98.1 F 101 H 18 120/81 99 08/02/19 13:20 08/02/19 13:20 08/02/19 13:20 08/02/19 13:20 08/02/19 13:20 - Laboratory Laboratory results interpreted by me: 08/02/19 08/02/19 14:03 14:03 WBC 11.8 H Absolute Lymphs (auto) 4.8 H ESR 24 H BUN 26 H Glucose 183 H 08/02/19 16:53 I have reviewed laboratory data and used this information for the treatment dec isions regarding the patient. (MARTY PATEL) Discharge <BRYCE HEWITT - Last Filed: 08/02/19 16:40> <MARTY PATEL - Last Filed: 08/02/19 17:14> - Discharge Clinical Impression: Peripheral arterial occlusive disease, Right foot pain Condition: Good Disposition: HOME, SELF-CARE Instructions: Peripheral Vascular Disease ([facility]) Additional Instructions: Begin aspirin daily, 325 mg. Follow-up with your doctor for a referral for a vascular consultation. Prescriptions: Clopidogrel Bisulfate [Plavix 75 mg Tablet] 75 mg PO DAILY #30 tablet Referrals: [facility] [Primary Care Provider] - Follow up as needed
[2019-08-02] MEDS ORDERED: ASPIRIN 325 MG TABLET PO ONE (17:07)
[2019-08-02] MEDS ORDERED: CLOPIDOGREL BISULFATE 75 MG TABLET PO ONE (17:07)
--- NOTE | 2019-08-02 17:08 | XCELERA REPORT ---
[address] [address] Lower Extremity Arterial Evaluation Name: BRYCE ISIDRO Age: 49 yrs Gender: Male : 1970 Patient Status: Preadmit Patient Location: ER Study Date: 08/02/2019 03:11 PM Procedure: A color flow and duplex scan of the lower extremity arteries was performed on the right with velocity and waveform anaylsis. Reason For Study: R foot pain Ordering Physician: KEVIN ARANGO Performed By: Myrna Tim Right Side Arterial Evaluation Normal velocity and biphasic waveforms noted in the Common Femoral artery and Deep Femoral arteries. . Monophasic waveforms with low velocity, spectral broadening from the Femoral to the infrageniculate arteries. Ankle Brachial index not done. Left Side Arterial Evaluation Very limited evaluation of the Dorsalis Pedis only, with low velocity, biphasic signal in the Dorsalis Pedis. Critical Findings Findings discussed with IMELDA Arango. Interpretation Summary Severe hemodynamically significant lesions in the right lower extremity only, on duplex imaging, at rest. Multilevel, severe artrial disease on the right. : KEVIN ARANGO > Edy Rothman
--- NOTE | 2019-08-02 17:08 | VASCULAR PRELIM REPORT ---
Provider Note Provider Note: Right side: Common femoral arterybiphasic 75 centimeters per second. Deep femoral arterybiphasic 43 centimeters per second Femoral arterymonophasic 48 centimeters per second Popliteal arterymonophasic 28 centimeters per second Posterior tibial arterymonophasic 28 centimeters per second. Peroneal arterymonophasic 28 centimeters per second. Anterior Tibial arterymonophasic 7 centimeters per second. Right lower extremity arterial study significant for severe, multilevel disease. Inflow as well as likely stenosis in the proximal Femoral artey.
[2019-08-02 17:24] VITALS: BP 128/72
== END 2019-08-02 17:24 | disposition home or self-care (01) ==
LOC: ER 12:38
DX: E11.51 Type 2 diabetes mellitus with diabetic peripheral angiopathy without gangrene (principal); E11.40 Type 2 diabetes mellitus with diabetic neuropathy, unspecified; Z79.899 Other long term (current) drug therapy; M79.671 Pain in right foot; F17.200 Nicotine dependence, unspecified, uncomplicated; I10 Essential (primary) hypertension
CPT/HCPCS: 36415; 80053; 84550; 85025; 85652; 86140; 93926; 99284